=== PATIENT | female | born 1975 | race Caucasian/White ===

== ENCOUNTER 2025-01-28 17:17 | Inpatient (IN) | payer OTHER, SELFPAY ==
[2025-01-28] VITALS (7 sets, daily range): BP systolic 116–136; BP diastolic 75–96; BMI 33.0
[2025-01-28 12:19] LABS: % Basophils 0.4 % (0-2); % Eosinophils 0.9 % (0-6); % Immature Granulocytes 0.1 % (0-0.5); % Lymphocytes 20.9 % (20.5-51.1); % Neutrophils 73.7 % (42.2-75.2); Absolute Eosinophils 0.1 10^3/uL (0-0.7); Absolute Lymphocytes 1.5 10^3/uL (1.2-3.4); Absolute Monocytes 0.3 10^3/uL (0.1-0.6); Absolute Neutrophils 5.1 10^3/uL (1.4-6.5); Hematocrit 39.5 % (37.0-47.0); Hemoglobin 13.9 g/dL (12.0-16.0); Mean Corp Hgb Conc. 35.2 g/dL (33.0-37.0); Mean Corpuscular Hgb 31.6 pg (27.0-31.0); Mean Corpuscular Volume 89.8 fL (81.0-99.0); Nucleated Red Blood Cells % 0 %; Platelet Count 220 10^3/uL (130-400); Red Cell Dist. Width 12.1 % (11.5-14.5)
[2025-01-28 12:32] LABS: APTT 28.1 Sec (23.4-35.0); INR 0.91; PT 12.6 Sec (11.4-14.6)
[2025-01-28 12:35] LABS: ALT (SGPT) 17 U/L (0-35); AST (SGOT) 18 U/L (14-36); Albumin 4.5 g/dl (3.5-5.0); Alkaline Phosphatase 62 U/L (38-126); Blood Urea Nitrogen 11 mg/dl (7-17); Calcium 9.7 mg/dl (8.4-10.2); Carbon Dioxide 29 mmol/L (22-30); Chloride 105 mmol/L (98-107); Glucose 99 mg/dl (70-99); Potassium 4.1 mmol/L (3.5-5.1); Sodium 144 mmol/L (135-145); Total Bilirubin 0.8 mg/dl (0.2-1.3); Total Protein 7.1 g/dl (6.3-8.2); eGFR > 60.00
[2025-01-28 12:47] LABS: Troponin I < 0.012 ng/ml
--- NOTE | 2025-01-28 15:35 | ED.GENMED ---
History of Present Illness
General
Chief Complaint: Numbness
Source: patient
Exam Limitations: none
Time Seen by Provider: 01/28/25 15:24
History of Present Illness
History of Present Illness:
Progressive sensory changes to the right side of her body throbbing weeks ago. Started in her feet progressed up towards her head and arm. Hypersensitive. No weakness although trouble typing. No headache visual issues speech issues gait issues
or other complaints. Outpatient MRI identified an infarct in the temporoparietal region on the left. Subacute nature.
Past History
Past History
ED Past Medical History: None
ED Past Surgical History: None
Social History
Tobacco: Non-smoker
Review of Systems
Review of Systems
All Other Systems: ROS reviewed and negative except as documented in HPI and ROS
Respiratory: Reports no symptoms
Cardiac: Reports no symptoms
Phy Exam
Physical Exam
Physical Exam:
GENERAL: Alert and oriented in no apparent distress
EYE: Orbits normal.
NECK: Supple, no carotid bruit
ENT: Pharynx without erythema
CARDIAC: Regular rate and rhythm without any obvious murmurs.
LUNGS: Clear breath sounds,normal
ABDOMEN: Soft, without focal tenderness or distention
NEUROLOGICAL: Alert and oriented , speech normal. Eye confrontation normal. Cranial nerves II through XII intact except for some decrease sensation to the right face. Decreased pinprick light side to the right side. Good lower extremity
strength. [id number] normal.
SKIN: Warm and dry, no rash or lesion, no discoloration, skin intact.
MUSCULOSKELETAL: No edema,no deformity.Good color
PSYCH: Normal and appropriate interaction.
Course
Orders/Labs/Results
Orders:
Orders
01/28/25 Breakfast
Regular
01/28/25 11:51
Electrocardiogram (*1) Urgent
Reason for Study: Other
Other Reason for Exam: Possible Stroke
EKG- Treatment ONCE
01/28/25 12:06
Complete Blood Count/With Diff Urgent
Comprehensive Metabolic Panel Urgent
PTT Urgent
Prothrombin Time Urgent
Troponin I Urgent
01/28/25 15:56
MR Brain W/o & With Contrast Routine
Comment:
Reason For Exam: abnormal noncontrast MRI outpatient.
Recent pill cam endoscopy?: No
01/28/25 15:59
MA [place] Wo Routine
Comment:
Reason For Exam: intracranial stenosis
Recent pill cam endoscopy?: No
MA Neck With Contrast Routine
Comment:
Reason For Exam: stenosis
Recent pill cam endoscopy?: No
01/28/25 16:29
Admit/Transfer Patient As Directed
Co-Sign Provider:
Level of Care: Inpatient admission
Assign to:: Medical/Surgical
Physician / Group: Erviny
Diagnosis: Right sided paresthesia, Abnormal MRI
Reason for Hospitalization: Brain MRI
Expected length of stay greater than two midnights?: Yes
ELOS- Estimated Length of Stay in days: 3
I certify the patient meets the requirements for IP care: Yes
01/28/25 16:30
PRN Pain Medication Management As Directed
May give lesser potent ordered pain med per pt: Yes
preference::
Protocol:: Medication orders for pain may be administered in a
manner that supports deferring to patient preference
when the pt is:
- Requesting an ordered lesser potent pain medication.
Least to most potent pain medications are defined
as: acetaminophen < NSAID < tramadol < opioids
(morphine, oxycodone, hydromorphone).
- Requesting a lesser dose of the same medication IF
ORDERED.
- Requesting a less intrusive route of administration
if both routes are prescribed by the provider (PO <
IV).
01/28/25 16:33
Code Status As Directed
Resuscitation Status: Full Code
01/28/25 18:11
Acetaminophen [Tylenol] 650 mg PO Q4HPRN PRN
01/28/25 18:23
Activity As Directed
Activity Level: Out of Bed-Early Mobility
With Assistance
I&O [Intake/ Output] As Directed
Frequency: q12h
Pneumatic Compression Sleeves As Directed
Type: Knee high
Vital Signs As Directed
Frequency: Per unit guidelines
Ot Eval And Treat Routine
Pt Eval And Treat Routine
Activity Level: Out of Bed-Early Mobility
DX Deep Vein Thrombosis Video Routine
Abnormal Lab Results
01/28/25
12:06
MCH 31.6 H pg
(27.0-31.0)
01/28/25 12:06
01/28/25 12:06
Vital Signs
Initial and Last Documented VS:
Initial Vital Signs
Pulse Resp BP Pulse Ox
73 20 136/96 99
01/28/25 11:45 01/28/25 11:45 01/28/25 11:45 01/28/25 11:45
Last Documented Vital Signs
Temp Pulse Resp BP Pulse Ox
98.1 F 85 18 127/90 95
01/28/25 18:38 01/28/25 18:38 01/28/25 18:38 01/28/25 18:38 01/28/25 18:38
*Pulse Oximetry
Patient hypoxic: no
*Critical Care Note
Total Time (30-74mins, 75-104mins- exclusive of procedures): Not Applicable
Update Note
Update Note:
Recent MRI shows a subacute possible infarct
Seen by neurology...
Recommend MRI with gadolinium also MRA.
ED Attending Note
-
Portions of this chart may have been created with voice recognition software.� Occasional wrong word or��sound alike� substitutions may have occurred due to the inherent limitations of voice recognition software.
Discharge Plan
Departure
Patient Disposition: Admit
Date of Disposition: 01/28/25
Time of Disposition: 16:18
Presentation/result/management discussed w/ accepting MD/DO: Neurology
Discharge Problem:
Right sided paresthesias, Abnormal MRI
Interventions
Interventions:
*Risk Screen - Suicide Last Done: 01/28/25 11:45
*General Assessment Last Done: 01/28/25 11:45
*Nursing Disposition Last Done: 01/28/25 18:19
ED- Neurological Assessment Last Done: 01/28/25 16:04
Discharge Date and Time
Discharge Date/Time: 01/28/25 18:20
--- NOTE | 2025-01-28 15:53 | CON.NEURO ---
Neuro Assessment/Plan
Assessment
several weeks of progressive/ascending right sided sensory symptoms
Not a good story for a stroke
Brain MRI report reviewed: left temporal/parietal large lesion T2/FLAIR, with restricted diffusion and BRIGHT on ADC mapping which is the opposite of what would be expected for a stroke
suspicion for neoplastic, inflammatory such as MS, or infectious such as abscess as the etiology of this lesion
Plan
will obtain brain MRI with contrast; if no enhancement I would treat as an abnormal presentation of stroke and start ASA/Lipitor
MRA head/neck also in case this ends up being a stroke.
Consultation
Order
Date of Consultation: 01/28/25
Requesting Provider:
Reason for Consult:
Subjective/Objective
Subjective Data
Date of Service: January 28, 2025
49 year old woman presenting with several weeks progressive right sided numbness. Started in right foot/calf, a week later spread up to the thigh, and then every week seemed to progress up her torso, then face, then arm. now entire right side is
involved.
Had brain MRI outpatient, report rev'd, large focus of T2/FLAIR increased signal posterior left temporal/parietal region.
Objective Data
Vital Signs
Pulse Resp BP Pulse Ox
85 18 128/79 99
01/28/25 15:45 01/28/25 15:51 01/28/25 15:00 01/28/25 15:15
Lab Results
01/28/25 12:06
01/28/25 12:06
PT 12.6 Sec (11.4-14.6) 01/28/25 12:06
INR 0.91 01/28/25 12:06
APTT 28.1 Sec (23.4-35.0) 01/28/25 12:06
Sodium 144 mmol/L (135-145) 01/28/25 12:06
Potassium 4.1 mmol/L (3.5-5.1) 01/28/25 12:06
BUN 11 mg/dl (7-17) 01/28/25 12:06
Glucose 99 mg/dl (70-99) 01/28/25 12:06
Calcium 9.7 mg/dl (8.4-10.2) 01/28/25 12:06
Patient Allergies
No Known Allergies Allergy (Unverified 01/28/25 11:46)
Physical Exam
-
AAOx3, speech clear, language intact
VFF, EOMI, face symmetric
full strength b/l UE/LE
decreased temp/vibration RUE/LE, with more involvement in LE.
DTR 1+ b/l UE; 1+ left knee, 2+ right knee
--- NOTE | 2025-01-28 16:39 | HPS.HSE ---
Family Physician
-
Family Physician: Ann Benavidez Files
Chief Complaint
-
Right Sided Paresthesias
History of Present Illness
Patient is a 49 y/o female without significant past medical history who presents with right sided numbness. Patient report symptoms initially started in her right foot about 4 weeks ago which now extends up the right calf. More recently symptoms
started to involved her right hand, right face and back of her head. She had an outpatient MRI which showed an abnormality in the left temporal region and she was referred to the emergency department for evaluation. Patient denies any prior
history of stroke or cancer.
Medical History
Past Medical History
Past Medical History: Reports None
Past Surgical History: Reports None
Social History
Tobacco: Non-smoker
Alcohol: Occasional
Family History
Family History: Other (Patient denies any family history of MS, or significant cancer history)
Allergies / Home Medications
Allergies reflects when Allergies were last updated in [facility].
Home Medications with original date entered in [facility]
Allergy/Medication List:
Allergies
Allergy/AdvReac Type Severity Reaction Status Date / Time
No Known Allergies Allergy Unverified 01/28/25 11:46
Home Medications
calcium carbonate (Tums) 200 mg PO QIDPRN PRN gerd 01/28/25
ibuprofen 200 mg tablet (Advil) 400 mg PO Q6HPRN PRN mild pain 01/28/25
therapeutic multivitamin 1 tab PO DAILY 01/28/25
Review of Systems
-
History Source: Patient
A 12 point ROS was completed and negative except as noted: Yes
Constitutional: Denies Fever or Chills
Respiratory: Denies Cough or Trouble Breathing
Cardiac: Denies Chest Pain or Palpitations
Abdomen/GI: Denies Abdominal Pain, Nausea, Vomiting, Diarrhea or Constipated
Physical Exam
Vital Signs
Vital Signs
Pulse Resp BP Pulse Ox
85 18 128/79 99
01/28/25 15:45 01/28/25 15:51 01/28/25 15:00 01/28/25 15:15
Physical Exam
General: Comfortable and Conversant
HEENT: Anicteric and Moist mucous membranes
Respiratory: Clear and Non Labored Respirations
Cardiac: S1/S2 and Regular Rhythm
GI: Soft and Non Tender
Rectal: Deferred by Provider
Musculoskeletal: No Clubbing, No Cyanosis and No Edema
Skin: Warm and Dry
Neuro: Awake, Alert, Oriented, No Motor Deficits and Other (Decreased sensation in the right upper and lower extremity)
Psych: Calm
Laboratory Results
-
01/28/25 12:06
01/28/25 12:06
Laboratory Results
PT 12.6 Sec (11.4-14.6) 01/28/25 12:06
INR 0.91 01/28/25 12:06
APTT 28.1 Sec (23.4-35.0) 01/28/25 12:06
Total Bilirubin 0.8 mg/dl (0.2-1.3) 01/28/25 12:06
AST 18 U/L (14-36) 01/28/25 12:06
ALT 17 U/L (0-35) 01/28/25 12:06
Alkaline Phosphatase 62 U/L (38-126) 01/28/25 12:06
Troponin I < 0.012 ng/ml 01/28/25 12:06
Data Reviewed
-
MRI: Report Reviewed by me
Lab Data: Labs Reviewed by me
Impression/Plan
-
Right Sided Paraesthesia with Abnormal MRI
-Outpatient MRI with large left temporal/parietal lesion
-Per Neurology MRI is not consistent with acute stoke
-Check Brain MRI with contrast
DVT proph: SCDs
Code Status: Full Code
--- NOTE | 2025-01-28 17:10 | W.PN.UPDATE ---
Update Note
Progress Note Update
This note serves as an addendum to the H&P by technical marketing consultant GARRETT Shaye PHIPPS
HPI
49F No significant PMHX pw right sided numbness.
- report symptoms initially started in her right foot about 4 weeks ago which now extends up the right calf.
- symptoms started to involved her right hand, right face and back of her head.
- Outpatient MRI which showed an abnormality in the left temporal region and she was referred to the emergency department for evaluation.
- Patient denies any prior history of stroke or cancer.
Vital Signs
Pulse Resp BP Pulse Ox
70 18 134/85 100
01/28/25 16:45 01/28/25 16:45 01/28/25 16:00 01/28/25 16:45
Local exam:
Neuro: Awake, Alert, Oriented, No Motor Deficits and Other (Decreased sensation in the right upper and lower extremity)
Abnormal Lab
01/28/25
12:06
MCH 31.6 H
ASSESSMENT & PLAN
Right Sided Paraesthesia with Abnormal MRI
-Outpatient MRI with large left temporal/parietal lesion
-Per Neurology MRI is not consistent with acute stoke
-Check Brain MRI with contrast
DVT proph: SCDs
Full Code
IP MS
[2025-01-28] MEDS: TYLENOL 650 MG PO (18:16)
--- NOTE | 2025-01-29 01:36 | W.PN.UPDATE ---
Update Note
Progress Note Update
~ Midnight - Pt c/o headache, rated 4/10, stated Tylenol given previously did not work. Pt stated headache was new, no hx of migraines.
Neurology following due to abnormal outpatient MRI. TT Neurology, Dr. Biggs, appreciate his recommendations as he had seen patient during the afternoon.
Neurology recommendations: Toradol 15 mg IV w/Reglan 10 mg IV w/Benadryl 25 mg IV or Decadron 4 mg.
On recheck, patient sleeping. Medication not ordered at this time, will order if pt c/o headache again.
~5:30 am Pt c/o headache. Offered recommended treatment from Neurology, patient declined. Patient requested Tylenol, medication given.
[2025-01-29] MEDS: TYLENOL 650 MG PO ×2 (04:30→17:15)
[2025-01-29 07:25] VITALS: BP 116/76
--- NOTE | 2025-01-29 12:18 | PTOTSP ---
Patient demonstrates functional independence at baseline and does not demonstrate continued need for physical therapy. Will discharge at this time.
If needs change, please re-consult.
--- NOTE | 2025-01-29 12:25 | W.PN.HOSP.TC ---
Today's Communication/Plan
-
transfer to [facility]
Assessment / Plan
Assessment / Plan
Gen: NAD, AAOx3.
Eyes: EOMI, PERRLA, no scleral icterus.
Neck: supple.
CV: RRR, +S1/S2, no m/r/g.
Resp: CTAB, no rales, wheezes, or rhonchi.
Abd: +BS, soft, NT, ND
Skin: No rashes.
Neuro: CN 2-12 intact, non-focal.
Psych: Normal mood and affect.
MRI brain w/wo: 4.8 x 2.8 x 3.2 cm enhancing infiltrative mass in the left temporoparietal region most concerning for an intraparenchymal neoplasm such as TOOL DESIGNER lymphoma or a high-grade glioma. The imaging appearance would be atypical for active
tumefactive demyelination. 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
MRA head: Normal MRA of the [place].
MRA neck: Normal MRA of the neck.
Right Sided Paraesthesia with Abnormal MRI:
-Infiltrative mass in the left temporoparietal region as above on MRI brain
-case discussed with neurosurgery, Dr. Olinda Simons. Patient will be transferred to [facility] for brain tumor biopsy.
Total time spent on d/c = 43 min. This included today's physical exam, progress note, review of laboratory and diagnostic data, preparation of discharge documents and prescriptions, and discussions about the pt's hospital course and discharge plan
with the patient and other registered medical assistant involved in the patient's care.
Anticipated Discharge: Today
Subjective/Interval History
-
Date of Service: January 29, 2025
No new complaints.
Objective Data
-
Vital Signs:
Vital Signs
Temp Pulse Resp BP Pulse Ox
98.3 F 71 18 116/76 97
01/29/25 07:25 01/29/25 07:25 01/29/25 07:25 01/29/25 07:25 01/29/25 07:25
--- NOTE | 2025-01-29 15:03 | CM ---
Transfer to [facility] upon bed availability. Met with patient to obtain information for assessment. Patient stated that she lives in a one story home with one step to enter with her spouse and children. She is independent with her ADLs, personal
care, dressing and bathing. 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 She drives and can get to her appointments and does her own shopping. She has no DME. She has never had any VN services.
Patient has a prescription plan and uses, [facility] for all of her medications.
Her PCP is, Pramod Sultana.
Plan: Case management will continue to follow and assist with discharge planning. Transfer to [facility] when bed available.
[2025-01-29 15:15] VITALS: BP 114/79
--- NOTE | 2025-01-29 17:09 | W.PN.UPDATE ---
Update Note
Progress Note Update
Case signed out over the phone to Dr. Travis Vela at [facility].
--- NOTE | 2025-01-29 18:58 | PTCARENOTE ---
Report was given to BENITO Bojorquez at [facility].
--- NOTE | 2025-01-30 14:18 | W.DCSUMMARY ---
Discharge Summary
Discharge Data
Date of Admission: 01/28/25
Date of Discharge: 01/29/25
-
Pending Results: No
Hospital Course
Primary diagnoses:
4.8 x 2.8 x 3.2 cm enhancing infiltrative mass in the left temporoparietal region
Secondary diagnoses:
None
Consultants:
None
Imaging:
MRI brain w/wo: 4.8 x 2.8 x 3.2 cm enhancing infiltrative mass in the left temporoparietal region most concerning for an intraparenchymal neoplasm such as UG DESIGNER lymphoma or a high-grade glioma. The imaging appearance would be atypical for active
tumefactive demyelination. 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
MRA head: Normal MRA of the [place].
MRA neck: Normal MRA of the neck.
Hospital course: 49-year-old female was admitted with approximately 1 months worth of right-sided paresthesias as outlined in the H&P done on admission. MRI brain above. The case discussed with neurosurgery, Dr. Olinda Simons. The patient was
transferred to [facility] for brain tumor biopsy.
Discharge Plan
-
Patient Disposition: Acute Care Hospital
Condition: Good
Discharge Orders:
Discharge Patient (As Directed); Ordered 01/29/25
Ordered By: Ash Estevez
Discharge Date and Time
Discharge Date/Time: 01/29/25 19:42
Print Language: GUAMANIAN
== END 2025-01-29 19:42 | disposition short-term general hospital (02) | DRG 55 ==
LOC: 4 EAST ACU 17:17
PROVIDERS: Emergency Medicine; ADMITTING PHYSICIAN Internal Medicine; ATTENDING PHYSICIAN Internal Medicine; EMERGENCY PHYSICIAN Emergency Medicine; FAMILY PHYSICIAN Family Medicine; OTHER PHYSICIAN Psychiatry & Neurology Clinical Neurophysiology
DX: D49.6 Neoplasm of unspecified behavior of brain (principal)
CPT/HCPCS: 70544; 70548; 70553; 80053; 84484; 85025; 85610; 85730; 93005; 97116; 97162; 97166; 99285; A9585

== ENCOUNTER 2025-02-23 03:31 | Inpatient (IN) | payer OTHER, SELFPAY ==
[2025-02-22 23:13] VITALS: BP 110/80
[2025-02-22 23:23] VITALS: BMI 33.5
[2025-02-22 23:29] VITALS: BP 119/85
--- NOTE | 2025-02-22 23:29 | EDRN ---
Family report pt left [facility] yesterday and on the way home she vomited. Pt was in [facility] s/p brain surgery. Family note pt is not acting per usual today - will not eat or drink and more confused. Pt mixing up words. Pt has weakness R side
which is not new. Call placed to doctor and advised to come to ED to r/o brain bleed. Pt thinks it is 1960's and does not know where she is. Pt able to identify family members. No cp, sob, fevers, abd pain. Pt had tylenol with codeine last
night and this morning.
--- NOTE | 2025-02-22 23:39 | ED.GENMED ---
History of Present Illness
General
Chief Complaint: Change in Mental Status
Source: patient and family
Time Seen by Provider: 02/22/25 23:21
History of Present Illness
History of Present Illness:
Note:
CHIEF COMPLAINT(S)
Post-operative altered mental status and right-sided weakness.
HISTORY OF PRESENT ILLNESS
The patient is a 49-year-old female with a recent history of brain surgery performed three weeks ago. The family reports notable changes in her cognitive and physical status since returning home from the hospital. The patients son, Berry, noted that
after leaving the hospital and during the car ride home, her condition seemed to resemble her state in the Intensive Care Unit rather than the recovered state she displayed at the rehabilitation center. She has been refusing food and water and is
experiencing episodes of pain and fear when moved, especially when her foot inadvertently curls under her, potentially due to her right-sided numbness. Her right-sided weakness has been present since the surgical procedure.
There is also concern regarding her speech, as she has been mixing up words and struggling with sentence structure, despite previously reaching a level of coherent conversation post-surgery. Her family also reported that since yesterday she has not
taken any new medications at home, and was on Tylenol 3, which was administered incorrectly at home. The patient has been having difficulties with nausea and vomiting, affecting medication intake, especially Keppra, although she managed to take her
morning dose. On physical exam, she presents with motor activity on the left side but significant weakness on the right side.
ADDITIONAL HISTORY OBTAINED FROM SOURCES OTHER THAN THE PATIENT
Per the son, Berry, and the family, upon arriving home after discharge, the patient displayed a significant decline in her alertness and participation in conversation. Additionally, the family acknowledges a stressful discharge process and transition
back home, which might have exacerbated her current state.
EXTERNAL RECORDS REVIEWED
The provider reviewed past surgical notes and the plan was made to ensure the recent changes in the patients health are not related to post-operative complications, including possible brain bleed.
CHRONIC MEDICAL CONDITIONS SIGNIFICANTLY AFFECTING CARE
The patient is on Keppra presumably for seizure control post-brain surgery.
PHYSICAL EXAM
- Nursing notes reviewed and vital signs reviewed.
- Cardiovascular: Heart sounds normal, regular rhythm, no murmurs.
- Musculoskeletal: Significant weakness in the right upper and lower extremities.
- Neurological: Right-sided weakness noted, with better strength noted on the left side.
- Skin: Surgical wound site appears well-healed without signs of infection.
PLAN
1. Obtain a brain scan (likely CT) to rule out any acute post-operative complications such as brain bleed.
2. Continue monitoring and ensure consistent administration of anti-seizure medication (Keppra).
3. Evaluate and manage nausea to ensure adequate medication and nutrition uptake.
4. Conduct further lab tests to rule out infections, electrolyte imbalances, and other potential causes of altered mental status.
5. Consider a comprehensive review of her current medication regimen to ensure no adverse drug interactions or dosing errors.
6. Consider a urine analysis to rule out urinary tract infections, if clinically indicated.
DIFFERENTIAL DIAGNOSIS
The Differential Diagnosis includes, in no particular order and is not limited to:
1. Post-operative brain bleed or hematoma
2. Acute infection (e.g., pneumonia, urinary tract infection)
3. Medication side effect or overdose
4. Electrolyte imbalance
5. Stroke or transient ischemic attack
6. Post-operative seizure activity
7. Psychological stress or adjustment disorder
8. Migraine or headache syndromes
9. Nausea or vomiting secondary to pain or anxiety
10. Iatrogenic, related to medication or change in care environment
CARE-UPDATE
02/23/25 - 00:28
Increased edema noted in the left brain mass/tumor resection region on imaging since the previous exam, as discussed with radiology. Awaiting surgical notes from the outside hospital to further evaluate the procedure details and post-operative
status.
CARE-UPDATE
02/23/25 - 00:49
Discussed case with Neurosurgery. They recommend administering 10 mg IV Decadron once, followed by restarting Dexamethasone at 4 mg every 8 hours. Edema possibly due to recent cessation of steroids; records to be reviewed for clarification on when
they were stopped. Neurosurgery agrees that the patient can be admitted presently.
CARE-UPDATE
02/23/25 - 01:17
The patient was recently taken off dexamethasone recently. Dr. Simons suspects steroid withdrawal could be the cause of this swelling and recommends restarting the steroids and obtaining an MRI to rule out other causes. The patients bowel and bladder
functions have been affected since her transfer from [place], as noted by family. A urine sample will be obtained via catheter for a sterile assessment of potential infection and to evaluate urinary retention. The patient may benefit from a bowel
regimen due to constipation possibly exacerbated by immobility and any narcotic use. The swelling and recent changes in her symptoms might be related, and the medical team will reassess based on MRI and urine analysis results. Coordination with the
admitting physician and adherence to the developed care plan for bowel and bladder management are necessary.
Disposition:
DIAGNOSIS
- Altered mental status post brain surgery, ICD-10 R41.82
SUMMARY OF ENCOUNTER
The 49-year-old female patient, recently postoperative from a tumor resection at [facility], presented with altered mental status, deviating from her baseline reported at rehabilitation. A CT scan revealed edema changes since the most recent imaging.
Discussions with neurosurgery suggest these may be due to steroid cessation. The patient is afebrile, has no meningeal signs, and presents no surgical wound infection. Her white blood cell count and chemistry panels show normal results.
DISPOSITION
Admit
CONSIDERATION FOR ADMISSION
The recommendation from neurosurgery was to admit the patient for observation and management at [facility].
ASSESSMENT
The patients altered mental status and edema may be related to the cessation of steroids used post-operatively, necessitating the resumption of dexamethasone.
EMERGENCY TREATMENTS ADMINISTERED
Restarting dexamethasone as recommended by neurosurgery.
MANAGEMENT OF THE PATIENTS CARE WAS DISCUSSED WITH
The care management was discussed with the neurosurgery team and hospitalist.
PLAN
- Commence dexamethasone management to address brain edema.
- Admit the patient for continuous observation and further management.
INDEPENDENT INTERPRETATION OF TESTS
- My independent interpretation of the CT scan indicates changes consistent with edema.
- My independent interpretation of the CBC shows a normal white blood cell count.
- My independent interpretation of the BMP indicates unremarkable results.
MEDICAL DECISION MAKING
Number and Complexity of Problems Addressed:
The patient presented with acute issues related to surgical recovery, reflecting a high level of complexity and necessitating a nuanced differential diagnosis and management strategy.
Data:
CT imaging was analyzed, indicating brain edema likely due to steroid withdrawal. Blood tests, including CBC and chemistry panels, were normal and integral to ruling out infection or metabolic causes.
Risk:
The decision to admit the patient takes into consideration the potential complications from undefined postoperative changes, with added risks from medication adjustments and monitoring.
Past History
Past History
ED Past Medical History: None
ED Past Surgical History: None
Social History
Tobacco: Non-smoker
Phy Exam
Physical Exam
Physical Exam:
.
Course
Orders/Labs/Results
Orders:
Orders
02/22/25 23:39
Cardiac Monitoring- Treatment ONCE
02/22/25 23:40
Electrocardiogram (*1) Stat
Reason for Study: Other
Other Reason for Exam: neuro symptoms
EKG- Treatment ONCE
02/22/25 23:41
Urinalysis Reflex To Culture Urgent
Date Specimen was Collected: 02/23/25
Time Specimen was Collected: 01:30
02/22/25 23:51
Complete Blood Count/With Diff Urgent
Comprehensive Metabolic Panel Urgent
02/23/25 00:00
CT Head W/o Iv Contrast Urgent
Reason For Exam: change in MS, recent tumor resection
02/23/25 01:19
Straight cath- Treatment ONCE
02/23/25 01:20
Dexamethasone Sod Phosphate [Decadron] 10 mg IV NOW STA
02/23/25 02:00
Flush (0.9% Sodium Chloride) [Flush (Nss)] See Dose Instructions IV PER PROTOCOL
02/23/25 02:59
Admit/Transfer Patient As Directed
Co-Sign Provider:
Level of Care: Inpatient admission
Assign to:: Telemetry
Physician / Group: Mirna
Diagnosis: altered mental status
Reason for Telemetry: CVA/TIA
Date to Stop Telemetry: 02/26/25
Time to Stop Telemetry: 11:00
Reason for Hospitalization: post op cerebral edema
Expected length of stay greater than two midnights?: Yes
ELOS- Estimated Length of Stay in days: 2
I certify the patient meets the requirements for IP care: Yes
PRN Pain Medication Management As Directed
May give lesser potent ordered pain med per pt: Yes
preference::
Protocol:: Medication orders for pain may be administered in a
manner that supports deferring to patient preference
when the pt is:
- Requesting an ordered lesser potent pain medication.
Least to most potent pain medications are defined
as: acetaminophen < NSAID < tramadol < opioids
(morphine, oxycodone, hydromorphone).
- Requesting a lesser dose of the same medication IF
ORDERED.
- Requesting a less intrusive route of administration
if both routes are prescribed by the provider (PO <
IV).
02/23/25 03:01
Code Status As Directed
Resuscitation Status: Full Code
02/23/25 05:14
Acetaminophen [Tylenol] 650 mg PO Q6H PRN mild pain
Acetaminophen with Codeine [Tylenol #3] 1 tablet PO Q4HPRN PRN headache-moderate
Bisacodyl [Dulcolax] 10 mg PO DAILYPRN PRN Constipation
Bisacodyl [Dulcolax] 10 mg RECTAL DAILYPRN PRN Constipation
Dextrose 5%/Lactringers 1000ML [D5lr] 1,000 ml IV 75 mls/hr
02/23/25 05:14
Neurosurgery Consult Routine
Consulting Provider: Juanita Simons
Was physician already notified: Yes
MRI Brain [MR Brain W/o & With Contrast] Routine
Comment:
Reason For Exam: AMS, rule out stroke, suspected post op edema
Recent pill cam endoscopy?: No
Activity As Directed
Activity Level: With Assistance
Neurological Checks As Directed
Frequency: q4h
Swallow Screening CVA/TIA ONLY As Directed
If patient FAILS swallow screening:: Keep NPO, alert physician
If patient PASSES swallow screening, diet:: Cholesterol Lowering
Above diet order entered?: Yes- passed screening
Vital Signs As Directed
Frequency: Per unit guidelines
O2 Therapy [RESP] Routine
Nasal Cannula Liter Flow: 2 LPM
Titrate/Wean O2 to maintain O2 sat greater than (%): 93
Pulse Ox/spot Check [RESP] Routine
Quantity: 1
PT Consult [Pt Eval And Treat] Routine
Activity Level: With Assistance
DX Deep Vein Thrombosis Video Routine
02/23/25 06:00
Basic Metabolic Panel IN AM
Complete Blood Count/No Diff IN AM
02/23/25 08:00
Dexamethasone Sod Phosphate [Decadron] 6 mg IV Q6H
Docusate Sodium [Colace] 100 mg PO BID
Levetiracetam [Keppra] 500 mg PO BID
Sennosides [Senokot] 17.2 mg PO DAILY
Sertraline HCl [Zoloft] 25 mg PO DAILY
02/23/25 18:00
Enoxaparin Sodium [Lovenox] 40 mg SC QPM
02/26/25 11:00
DC Protocol for Telemetry ONCE
Abnormal Lab Results
02/22/25
23:51
RBC 3.70 L 10^6/uL
(4.20-5.40)
Hgb 11.8 L g/dL
(12.0-16.0)
Hct 33.7 L %
(37.0-47.0)
MCH 31.9 H pg
(27.0-31.0)
Absolute Neuts (auto) 8.9 H 10^3/uL
(1.4-6.5)
Absolute Lymphs (auto) 0.7 L 10^3/uL
(1.2-3.4)
Neutrophils % 87.6 H %
(42.2-75.2)
Lymphocytes % 7.0 L %
(20.5-51.1)
Creatinine 0.5 L mg/dL
(0.6-1.0)
Glucose 140 H mg/dl
(70-99)
Total Bilirubin 1.6 H mg/dl
(0.2-1.3)
ALT 58 H U/L
(0-35)
02/22/25 23:51
02/22/25 23:51
Vital Signs
Initial and Last Documented VS:
Initial Vital Signs
Temp Pulse Resp BP Pulse Ox
98.2 F 70 20 110/80 98
02/22/25 23:13 02/22/25 23:13 02/22/25 23:13 02/22/25 23:13 02/22/25 23:13
Last Documented Vital Signs
Temp Pulse Resp BP Pulse Ox
98.8 F 67 16 124/74 98
02/23/25 05:10 02/23/25 05:10 02/23/25 05:10 02/23/25 05:10 02/23/25 05:10
*Pulse Oximetry
Patient hypoxic: no
*Aeronautical Engineering Professor Interpretation
Rate: normal
Interpretation: normal
Rhythm: sinus
*Critical Care Note
Total Time (30-74mins, 75-104mins- exclusive of procedures): 45 minutes
ED Attending Note
-
Portions of this chart may have been created with voice recognition software.� Occasional wrong word or��sound alike� substitutions may have occurred due to the inherent limitations of voice recognition software.
Discharge Plan
Departure
Patient Disposition: Admit
Date of Disposition: 02/23/25
Time of Disposition: 01:21
Admit to: IMU
Presentation/result/management discussed w/ accepting MD/DO: Hospitalist
Discharge Problem:
Cerebral edema, Acute alteration in mental status
Interventions
Interventions:
*Risk Screen - Suicide Last Done: 02/22/25 23:13
*General Assessment Last Done: 02/22/25 23:13
*Neglect/Abuse Screening Last Done: 02/22/25 23:13
*ED- Fall Risk Assessment Last Done: 02/22/25 23:13
*ED COVID-19 Vaccine History Last Done: 02/23/25 05:30
*Nursing Disposition Last Done: 02/23/25 05:30
ED- Pulmonary Assessment Last Done: 02/22/25 23:30
ED- Neurological Assessment Last Done: 02/23/25 04:45
ED- Cardiac Assessment Last Done: 02/22/25 23:30
ED Swallowing Screen Last Done: 02/23/25 03:00
Discharge Date and Time
Discharge Date/Time: 02/23/25 05:10
[2025-02-22 23:57] LABS: % Basophils 0.1 % (0-2); % Immature Granulocytes 0.3 % (0-0.5); % Neutrophils 87.6 % (42.2-75.2); Absolute Lymphocytes 0.7 10^3/uL (1.2-3.4); Absolute Monocytes 0.5 10^3/uL (0.1-0.6); Absolute Neutrophils 8.9 10^3/uL (1.4-6.5); Hematocrit 33.7 % (37.0-47.0); Hemoglobin 11.8 g/dL (12.0-16.0); Mean Corpuscular Hgb 31.9 pg (27.0-31.0); Mean Corpuscular Volume 91.1 fL (81.0-99.0); Mean Platelet Volume 8.4 fL (7.4-10.4); Nucleated Red Blood Cells % 0 %; Platelet Count 207 10^3/uL (130-400); Red Cell Dist. Width 12.8 % (11.5-14.5); White Blood Cell Count 10.1 10^3/uL (4.8-10.8)
[2025-02-23] VITALS (13 sets, daily range): BP systolic 109–126; BP diastolic 74–81; BMI 33.2
[2025-02-23 00:10] LABS: ALT (SGPT) 58 U/L (0-35); AST (SGOT) 24 U/L (14-36); Albumin 4.2 g/dl (3.5-5.0); Alkaline Phosphatase 89 U/L (38-126); Blood Urea Nitrogen 13 mg/dl (7-17); Carbon Dioxide 28 mmol/L (22-30); Chloride 101 mmol/L (98-107); Estimated Creatinine Clearance 113 ml/min; Glucose 140 mg/dl (70-99); Potassium 4.1 mmol/L (3.5-5.1); Sodium 136 mmol/L (135-145); Total Bilirubin 1.6 mg/dl (0.2-1.3); Total Protein 6.8 g/dl (6.3-8.2); eGFR > 60.00
[2025-02-23] MEDS: DECADRON 10 MG IV (01:34)
[2025-02-23 01:51] LABS: Urine Albumin Negative (Neg - Trace); Urine Bilirubin Negative (Negative); Urine Character Clear (Clear); Urine Color Yellow; Urine Glucose Negative (Negative); Urine Ketone Negative (Negative); Urine Leukocyte Negative (Negative); Urine Nitrite Negative (Negative); Urine Occult Blood Negative (Negative); Urine Specific Gravity 1.015 (<1.030); Urine Urobilinogen Negative (Neg - 1+)
--- NOTE | 2025-02-23 02:46 | HPS.HSE ---
Family Physician
-
Family Physician: Ann Sultana
Chief Complaint
-
change in mental status
History of Present Illness
This is a 49-year-old female will presents to the emergency department for right sided weakness and worsening confusion.
Patient has a recent history of glioblastoma status post resection. She initially presented to [facility] on January 28 with right-sided numbness and started initially in her right foot about 4 weeks prior to that w and then involving the right
calf and right upper extremity any progression over 4 weeks. She was found to have 4.8 x 2.8 x 3.2 enhancing infiltrative mass in the left temporoparietal region concerning for intraparenchymal neoplasm. Patient was transferred to [facility] and underwent resection of the tumor with findings of temporal vascular hypervascular tumor consistent with glioblastoma. Was discharged to rehab on . According to family at the time of being discharged from rehab 2 days ago she was
able to squeeze with her right hand. She was also able to ambulate somewhat with some increased use of the right lower extremity. However upon arrival at home the patient demonstrated decreased appetite, increased somnolence, increased confusion,
increased weakness of the upper and lower extremities. She had no fevers or chills. Her blood pressure had been stable. She had no urinary symptoms. She did not complain of any headache but was given Tylenol the previous evening. She also
vomited about 3 times at home. It was nonbloody and nonbilious.
Here in the emergency department patient was afebrile with a Tmax of 98.2. Her blood pressure was 120/74 with a pulse of 60 and she was satting 98% on room air. ECG shows normal sinus rhythm at a rate of 60. CBC was unremarkable. Electrolytes
BUN/creatinine were all normal. Total bilirubin was slightly elevated 1.6, AST ALT were normal. UA was negative.
CT of the head shows redemonstration of postoperative changes in the left temporoparietal lobe however large amount of retained edema and effacement of the sulci and Clint at significantly increased compared to prior study. There is a 9 mm of
rightward shift of the septum pellucidum which was previously 5 mm. There is left temporal on dilation that is slightly increased compared to prior.
Medical History
Past Medical History
Past Medical History: Reports Other
Additional Past Medical History:
Left temporal glioblastoma status post resection at [facility] on 02/01
Past Surgical History: Reports None and Brain
Social History
Tobacco: Non-smoker
Alcohol: Occasional
Family History
Family History: Other (Patient denies any family history of MS, or significant cancer history)
Allergies / Home Medications
Allergies reflects when Allergies were last updated in [facility].
Home Medications with original date entered in [facility]
Allergy/Medication List:
Allergies
Allergy/AdvReac Type Severity Reaction Status Date / Time
oxycodone Allergy ALTERED Verified 02/22/25 23:38
MENTAL
STATUS
Home Medications
acetaminophen 325 mg tablet 650 mg PO Q6H PRN mild pain 02/06/25
acetaminophen 300 mg-codeine 30 mg tablet 1 tab PO Q4HPRN PRN headache-moderate 5 days #30 tabs 02/20/25
bisacodyl 10 mg rectal suppository 10 mg VT DAILYPRN PRN Constipation 30 days #30 ea 02/20/25
bisacodyl 5 mg tablet,delayed release 10 mg (2 x 5 mg) PO DAILY Constipation 30 days #60 tabs 02/20/25
bisacodyl 5 mg tablet,delayed release 10 mg (2 x 5 mg) PO DAILYPRN PRN Constipation 30 days #30 tabs 02/20/25
docusate sodium 100 mg capsule 100 mg PO BID 30 days #60 caps 02/20/25
levetiracetam 500 mg tablet 500 mg PO BID seizure prophylaxis 30 days #60 tabs 02/20/25
sertraline 25 mg tablet 25 mg PO DAILY Mental Health/Anxiety 30 days #30 tabs 02/20/25
sennosides 8.6 mg tablet (Angela-stephen) 17.2 mg PO DAILY Constipation 02/22/25
Review of Systems
-
History Source: Family
Constitutional: Reports No Symptoms
EENT: Reports No Symptoms
Respiratory: Reports No Symptoms
Cardiac: Reports No Symptoms
Abdomen/GI: Reports Vomiting
: Reports No Symptoms
Musculoskeletal: Reports No Symptoms
Skin: Reports No Symptoms
Neurological: Reports Weakness
Endocrine: Reports No Symptoms
Hematologic/Lymphatic: Reports No Symptoms
Psych: Reports No Symptoms
Physical Exam
Vital Signs
Vital Signs
Temp Pulse Resp BP Pulse Ox
98.2 F 60 16 119/74 98
02/22/25 23:13 02/23/25 00:00 02/23/25 00:00 02/23/25 00:00 02/22/25 23:13
Physical Exam
General: Well Developed, Well Nourished and Comfortable
HEENT: NormoCephalic, Anicteric and Moist mucous membranes
Respiratory: Clear
Cardiac: S1/S2 and Regular Rhythm
Breast: Deferred by me
GI: Soft, Non Tender, Non Distended and Normal Bowel Sounds
Rectal: Deferred by Provider
Genito-urinary: Deferred by me
Musculoskeletal: No Clubbing, No Cyanosis and No Edema
Skin: Warm
Neuro: Awake, Cranial Nerves Intact, Slurred Speech and Other (2/5 strenght in the R upper extremity. 2/5 strenght at the right LE to the plantar flexion. Clonus on R planter reflex); No Oriented, Facial Droop or Tremors
Laboratory Results
-
02/22/25 23:51
02/22/25 23:51
Laboratory Results
Total Bilirubin 1.6 mg/dl (0.2-1.3) H 02/22/25 23:51
AST 24 U/L (14-36) 02/22/25 23:51
ALT 58 U/L (0-35) H 02/22/25 23:51
Alkaline Phosphatase 89 U/L (38-126) 02/22/25 23:51
Data Reviewed
-
CT Scan: Report Reviewed by me
Medical Tests (Nuc Med, Echo, EKG etc): Image Personally Visualized and interpreted
Lab Data: Labs Reviewed by me
Old Records: Reviewed
Impression/Plan
-
IMPRESSION:
Patient with recent history of glioblastoma status post resection of the right temporal mass with residual right-sided weakness presents to the emergency department with worsening weakness and altered mental status after discharge from rehab about 2
days ago. Patient has decreased p.o. intake. She has normal blood pressure. She has no headache. She is afebrile. She has no other signs of infection. She has no neck stiffness. CT scan shows increased edema and effacement of is concerning
Clint compared to prior study. There is a 9 mm right word shift of the septum pellucidum which was previously 5 mm. Concern for vasogenic edema. Patient currently was supposed to stop taking the Decadron on 6 4 however the discharge medications
showed no Decadron listed. Suspect early discontinuation of steroids with rebound withdrawal.
PLAN:
Postoperative vasogenic edema likely secondary to early termination of steroids. No seizure activity noted.
- admit to telemetry
- no signs of acute infection
- obtain mri with/without contrast in am
- d/w neurosurg, patient can stay here with iv decadron
- 10mg iv decadron in Ed, will continue with 4mg iv q8 per neurosurg
- npo for now, speech swallow eval
- neurochecks q 6 hours
- neurosurgery consult
- pt eval
DVT PPX - heparin sq
Code status - Full Code
--- NOTE | 2025-02-23 05:10 | PTCARENOTE ---
Pt received from ED to room 422. Pt oriented to room and call peck. Pt with expressive aphasia, difficult to assess orientation.
[2025-02-23] MEDS: D5LR 1000 IV (05:57)
[2025-02-23] MEDS: DECADRON 6 MG IV ×3 (07:32→19:40)
[2025-02-23] MEDS: COLACE 100 MG PO ×2 (07:38→19:41)
[2025-02-23] MEDS: SENOKOT 17.2 MG PO (07:39)
[2025-02-23] MEDS: ZOLOFT 25 MG PO (07:40)
[2025-02-23] MEDS: KEPPRA 500 MG PO ×2 (07:40→19:41)
--- NOTE | 2025-02-23 08:07 | W.PN.HOSP.TC ---
Today's Communication/Plan
-
Pending MRI brain.
Assessment / Plan
Assessment / Plan
Impression:
Patient is a pleasant 49 years old female with recent history of glioblastoma status post resection of the right temporal mass with residual right-sided weakness presents to the emergency department with worsening weakness and altered mental status
after discharge from rehab about 2 days ago. Patient has decreased p.o. intake. She has normal blood pressure. She has no headache. She is afebrile. She has no other signs of infection. She has no neck stiffness. CT scan shows increased edema
and effacement of is concerning Clint compared to prior study. There is a 9 mm right word shift of the septum pellucidum which was previously 5 mm. Concern for vasogenic edema. Patient currently was supposed to stop taking the Decadron on 6 4
however the discharge medications showed no Decadron listed. Suspect early discontinuation of steroids with rebound withdrawal.
Assessment/plan:
Acute metabolic encephalopathy
Postoperative vasogenic edema likely secondary to early termination of steroids. No seizure activity noted.
Patient presented to the ER with change in mental status.
CT head showed
Significantly progressed right midline shift with findings concerning for possible infection. Nonacute hemorrhagic products and postsurgical changes not excluded. MRI examination with IV contrast recommended. The patient is on the schedule today.
Progressed edematous change of the left cerebrum along with persistent postsurgical changes including a stable tiny focus of hemorrhagic products..
Discussed with neurosurgery
MRI with and without contrast pending
Neurosurgery recommended to continue with Decadron
10mg iv decadron in Ed, will continue with 4mg iv q8 per neurosurg
npo for now, speech swallow eval
neurochecks q 6 hours
Continue Keppra
Oncology consult.
CODE STATUS: Full code
DVT prophylaxis: Lovenox
Diet: Regular diet
Disposition: Pending MRI brain
Total time spent on today's encounter was 65 minutes which included time spent in counseling the patient/family regarding diagnosis and treatment plan as listed above, goals of care, and symptom management. Case was discussed with nursing staff,
specialists, and care coordinators/case management. All labs and imaging personally reviewed by me. Remainder the time spent in detailed review of previous records, lab data, imaging, and other medical provider documentation.
Anticipated Discharge: > 48 hours
Subjective/Interval History
-
Date of Service: February 23, 2025
Seen and examined at bedside.
Minimal communication.
Objective Data
-
Labs:
Laboratory Results
02/22/25 02/23/25
23:51 07:41
WBC 10.1 Pending
Hgb 11.8 L Pending
Hct 33.7 L Pending
Plt Count 207 Pending
Sodium 136 Pending
Potassium 4.1 Pending
Chloride 101 Pending
Carbon Dioxide 28 Pending
BUN 13 Pending
Creatinine 0.5 L Pending
Glucose 140 H Pending
Calcium 10.0 Pending
Total Bilirubin 1.6 H
AST 24
ALT 58 H
Alkaline Phosphatase 89
Vital Signs:
Vital Signs
Temp Pulse Resp BP Pulse Ox
98.8 F 67 16 124/74 98
02/23/25 05:10 02/23/25 05:10 02/23/25 05:10 02/23/25 05:10 02/23/25 05:10
Physical Exam
-
General: Appears Chronically Ill
HEENT: No Ptosis, PERRLA and Nose Appears Normal
Respiratory: Rales and Rhonchi
Cardiac: Regular Rhythm and S1/S2
Breast: Deferred by me
GI: Soft, Nontender, Nondistended and Normal Bowel Sounds
Genito-urinary: No Costovertebral Tender
Musculoskeletal: No Clubbing, No Cyanosis and No Edema
Skin: Warm
Neuro: Awake
Psych: Calm, Confused and Other (Poor communication)
Data Reviewed
-
Diagnostic Radiology: Image personally visualized and interpreted and Report Reviewed by me
CT Scan: Image personally visualized and interpreted and Report Reviewed by me
Ultrasound: Image personally visualized and interpreted and Report Reviewed by me
MRI: Image personally visualized and interpreted and Report Reviewed by me
Medical Tests (Nuc Med, Echo etc): Image personally visualized and interpreted and Report Reviewed by me
Labs: Labs Reviewed by me
Old Records: Reviewed
[2025-02-23 08:26] LABS: Hematocrit 33.9 % (37.0-47.0); Hemoglobin 12.1 g/dL (12.0-16.0); Mean Corp Hgb Conc. 35.7 g/dL (33.0-37.0); Mean Corpuscular Hgb 32.1 pg (27.0-31.0); Mean Corpuscular Volume 89.9 fL (81.0-99.0); Mean Platelet Volume 10.4 fL (7.4-10.4); Platelet Count 167 10^3/uL (130-400); Red Blood Cell Count 3.77 10^6/uL (4.20-5.40); Red Cell Dist. Width 12.9 % (11.5-14.5); White Blood Cell Count 7.3 10^3/uL (4.8-10.8)
[2025-02-23] MEDS: TYLENOL 650 MG PO (10:05)
[2025-02-23 10:12] LABS: Blood Urea Nitrogen 12 mg/dl (7-17); Calcium 10.4 mg/dl (8.4-10.2); Carbon Dioxide 27 mmol/L (22-30); Chloride 105 mmol/L (98-107); Estimated Creatinine Clearance 113 ml/min; Glucose 151 mg/dl (70-99); Potassium 3.9 mmol/L (3.5-5.1); Sodium 140 mmol/L (135-145); eGFR > 60.00
--- NOTE | 2025-02-23 11:31 | CM ---
CM reviewed chart, patient seen bedside, initial assessment completed by patients mother. Per mother, patient resides with spouse, two songs, two daughters, in a single story home, one step to enter. Patient has a walker, WC, toilets rails in the
home. Patient recently discharged from [facility] scheduled to come out for home services. Patient PCP Pramod Sultana, [facility], confirms prescription coverage. PT/OT ordered, will follow along for recommendations.
Neurosurgery consulted. CM will continue to follow for all discharge planning needs.
Plan; home with family with [facility], watch for therapy recommendations
--- NOTE | 2025-02-23 14:48 | CON.NS ---
Consultation
-
Date/Time Consultation Performed: 02/23/2025; 15:00
Performing Provider: Ronak
Chief Complaint
History of Present Illness
This is a neurosurgical consultation on a 49-year-old female, known to me. She presented to [facility] approximately 3 to 4 weeks prior, with right sided paresthesias. Imaging revealed a left temporoparietal enhancing lesion. She
ultimately was transferred to [facility], and underwent excisional biopsy, which ultimately revealed high-grade glioma. Final pathology/grading is pending. Molecular studies are pending. She had interim worsening of speech, as well as
right upper, lower extremity weakness, for which she was transferred after surgery to rehab for. This has been steadily improving. Plan was to follow-up with her as an outpatient this upcoming week to discuss final pathology, as well as
chemoradiotherapy plans. She ultimately was discharged from rehab facility to home on 02/21/2025. She presented again on 02/22/2025 with decreased appetite, increased somnolence, increased confusion, and weakness in both upper and lower extremities.
She also had vomiting. Patient had a noncontrast head CT, which demonstrated postsurgical changes with the left temporoparietal lobe, with progression of edema. Patient admitted and restarted on high-dose steroids.
Patient seen and examined. 3 children are at bedside. She and family report that she was discharged from rehab to home several days ago. They feel that while she was making some improvement with the right arm and right leg paresthesias, that it
significantly worsened over the last 2 days. She was not discharged on any steroids.
Since being started on steroids, the patient, family reports significant improvement of right upper and lower extremity. They are scheduled to see oncology on Tuesday, and to see me on Tuesday.
Review of Systems
-
10 point review of systems including constitutional, ENT, cardiovascular, respiratory, GI, , endocrinologic, hematologic, neurologic, musculoskeletal was performed, and was negative except for as stated in HPI.
Medication and Allergies
Home Medications
Home Medications
�Medication �Instructions �Recorded
acetaminophen 325 mg tablet 650 mg PO Q6H PRN mild pain 02/06/25
acetaminophen 300 mg-codeine 30 mg 1 tab PO Q4HPRN PRN 02/20/25
tablet headache-moderate 5 days #30 tabs
bisacodyl 10 mg rectal suppository 10 mg ND DAILYPRN PRN Constipation 02/20/25
30 days #30 ea
bisacodyl 5 mg tablet,delayed 10 mg (2 x 5 mg) PO DAILY 02/20/25
release Constipation 30 days #60 tabs
bisacodyl 5 mg tablet,delayed 10 mg (2 x 5 mg) PO DAILYPRN PRN 02/20/25
release Constipation 30 days #30 tabs
docusate sodium 100 mg capsule 100 mg PO BID 30 days #60 caps 02/20/25
levetiracetam 500 mg tablet 500 mg PO BID seizure prophylaxis 02/20/25
30 days #60 tabs
sertraline 25 mg tablet 25 mg PO DAILY Mental 02/20/25
Health/Anxiety 30 days #30 tabs
sennosides 8.6 mg tablet (Angela-stephen) 17.2 mg PO DAILY Constipation 02/22/25
Allergies
Allergies
Allergy/AdvReac Type Severity Reaction Status Date / Time
oxycodone Allergy ALTERED Verified 02/22/25 23:38
MENTAL
STATUS
Physical Exam
-
Exam:
Awake, alert, attentive
Pupils are equal and reactive to light
Extraocular movements are full
Face symmetric
Left temporal incision is healing well with no evidence of concerning erythema, edema, or fluctuance
Right upper extremity 2/5, 1-2/5 right lower extremity.
Still with mixed aphasia, with some fluent speech. Paraphasic errors.
MRI of the brain with and without contrast performed today, 02/23/2025 was reviewed. Images were personally viewed and interpreted by me. They were also compared with previous imaging studies performed at [facility] immediately
postoperatively. There has been interval significant progression of tumor and disease with worsening vasogenic edema. Now, compared with patient's postoperative MRI scan performed on 02/02/2025, there is more extensive tumor superiorly, involving
the frontal parietal lobe, with heterogeneous enhancement, indicating likely necrosis, as well as similar appearance of tumor extending to the corpus callosum. There also appears to be increased soft tissue enhancement around the margins of the
cavity, and while some of this may be postsurgical enhancement, given the extensive edema, and FLAIR signal hyperintensity, aggression of disease is highly likely.
Problems
-
Problem Status Onset Code
Acute alteration in mental status Acute R41.82
Cerebral edema Acute G93.6
Assessment / Plan
-
This a 49-year-old female who is approximately 3 weeks status post left temporal craniotomy for excisional biopsy of lesion. Final pathology is pending. Her MRI performed today demonstrates, unfortunately, significant progression of disease.
Discussed with hospital medicine, as well as oncology. I also updated patient, family, and parents on MRI findings.
Ultimately, I explained that additional surgical excision will not provide significant control of this, as it is growing quite rapidly, and additional surgical resection will likely require postponing adjuvant chemoradiotherapy. Therefore, I do
believe that she would benefit from chemo and radiotherapy, and I would suggest consulting with [facility] to see if she may benefit from any additional clinical trials.
Continue with dexamethasone 4 mg every 6 hours
Keppra 500 mg twice daily
[2025-02-24] VITALS (7 sets, daily range): BP systolic 101–129; BP diastolic 64–79
[2025-02-24] MEDS: DECADRON 6 MG IV ×4 (03:00→19:45)
[2025-02-24 07:06] LABS: Hematocrit 35.5 % (37.0-47.0); Hemoglobin 12.2 g/dL (12.0-16.0); Mean Corp Hgb Conc. 34.4 g/dL (33.0-37.0); Mean Corpuscular Hgb 31.7 pg (27.0-31.0); Mean Corpuscular Volume 92.2 fL (81.0-99.0); Mean Platelet Volume 9.1 fL (7.4-10.4); Platelet Count 254 10^3/uL (130-400); Red Blood Cell Count 3.85 10^6/uL (4.20-5.40); Red Cell Dist. Width 13.1 % (11.5-14.5); White Blood Cell Count 11.7 10^3/uL (4.8-10.8)
[2025-02-24 07:10] LABS: Blood Urea Nitrogen 17 mg/dl (7-17); Calcium 10.1 mg/dl (8.4-10.2); Carbon Dioxide 25 mmol/L (22-30); Chloride 106 mmol/L (98-107); Estimated Creatinine Clearance 113 ml/min; Glucose 120 mg/dl (70-99); Potassium 4.2 mmol/L (3.5-5.1); Sodium 141 mmol/L (135-145); eGFR > 60.00
[2025-02-24] MEDS: COLACE 100 MG PO ×2 (09:09→19:45)
[2025-02-24] MEDS: KEPPRA 500 MG PO ×2 (09:09→19:45)
[2025-02-24] MEDS: SENOKOT 17.2 MG PO (09:09)
[2025-02-24] MEDS: ZOLOFT 25 MG PO (09:09)
--- NOTE | 2025-02-24 09:44 | CON.ONC ---
Consultation
-
Date Consultation Requested: 02/24/25
Date Consultation Performed: 02/24/25
Requesting Provider: KENIA
Performing Provider: BAY
Reason for Consultation: PROGRESSIVE GBM
Impression
Impression
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
Plan
Plan
Consult radiation therapy Tuesday morning; consult social welfare clerk -- she wishes to live with her mother for the initiation of therapy--suspect she will be candidate for Temozolomide--followup inpatient
Patient History
History of Present Illness
49yo WF s/p resection of likely GBM d/c from [facility] rehab day prior to admission for which she was manifestingincreasing confusion and emotional lability. Her d/c from [facility] notes continued difficulties with ambulation even with walker; imaging notes
likely progression of disease with left midline shift and nodular enhance of the left resection bed. She presented in mid January 2025 with parasthesias to ER noting large 8cm temporal mass; she was transferred to [facility] where CT CAP noted no evidence
of a primary source though cystic pelvic structure noted. She underwent tumor debulking 02/01/2025-- tumor is IDH1 neg awaiting molecular testing. HEr mother indicates that she was not d/c'd on oral steroid therapy from rehab and declined quickly
with marked improvment quickly with readministration of dexamethasone.
Past-Medical/Surgical History
anxiety
Patient Medication
�Medication �Instructions �Recorded �Confirmed �Last Taken �Type
acetaminophen 325 mg tablet 650 mg PO Q6H PRN mild pain 02/06/25 02/22/25 Unknown History
acetaminophen 300 mg-codeine 30 mg 1 tab PO Q4HPRN PRN 02/20/25 02/22/25 Unknown Rx
tablet headache-moderate 5 days #30 tabs
bisacodyl 10 mg rectal suppository 10 mg WI DAILYPRN PRN Constipation 02/20/25 02/22/25 Unknown Rx
30 days #30 ea
bisacodyl 5 mg tablet,delayed 10 mg (2 x 5 mg) PO DAILY 02/20/25 02/22/25 Unknown Rx
release Constipation 30 days #60 tabs
bisacodyl 5 mg tablet,delayed 10 mg (2 x 5 mg) PO DAILYPRN PRN 02/20/25 02/22/25 Unknown Rx
release Constipation 30 days #30 tabs
docusate sodium 100 mg capsule 100 mg PO BID 30 days #60 caps 02/20/25 02/22/25 Unknown Rx
levetiracetam 500 mg tablet 500 mg PO BID seizure prophylaxis 02/20/25 02/22/25 Unknown Rx
30 days #60 tabs
sertraline 25 mg tablet 25 mg PO DAILY Mental 02/20/25 02/22/25 Unknown Rx
Health/Anxiety 30 days #30 tabs
sennosides 8.6 mg tablet (Angela-stephen) 17.2 mg PO DAILY Constipation 02/22/25 02/22/25 Unknown History
Active Medications
Generic Name Dose Route Start Last Admin
Trade Name Freq PRN Reason Stop Dose Admin
Acetaminophen 650 mg 02/23/25 05:14 02/23/25 10:05
Acetaminophen 325 Mg Tablet PO 03/23/25 05:13 650 mg
Q6H PRN Administration
mild pain
Acetaminophen/Codeine Phosphate 1 tablet 02/23/25 05:14
Acetaminophen (300 Mg)/Codeine (30 Mg) Tablet PO 03/23/25 05:13
Q4HPRN PRN
headache-moderate
Bisacodyl 10 mg 02/23/25 05:14
Bisacodyl 10 Mg Rectal Suppository RECTAL 03/23/25 05:13
DAILYPRN PRN
Constipation
Bisacodyl 10 mg 02/23/25 05:14
Bisacodyl 5 Mg Enteric Coated Tablet PO 03/23/25 05:13
DAILYPRN PRN
Constipation
Dexamethasone Sodium Phosphate 6 mg 02/23/25 08:00 02/24/25 09:07
Dexamethasone 4 Mg/Ml 1 Ml Vial IV 03/23/25 07:59 6 mg
Q6H KEVIN Administration
Docusate Sodium 100 mg 02/23/25 08:00 02/24/25 09:09
Docusate Sodium 100 Mg Capsule PO 03/23/25 07:59 100 mg
BID KEVIN Administration
Levetiracetam 500 mg 02/23/25 08:00 02/24/25 09:09
Levetiracetam 500 Mg Regular Release Tablet PO 03/23/25 07:59 500 mg
BID KEVIN Administration
Sennosides 17.2 mg 02/23/25 08:00 02/24/25 09:09
Sennosides (Senokot) 8.6 Mg Tablet PO 03/23/25 07:59 17.2 mg
DAILY KEVIN Administration
Sertraline HCl 25 mg 02/23/25 08:00 02/24/25 09:09
Sertraline 25 Mg Tablet PO 03/23/25 07:59 25 mg
DAILY KEVIN Administration
Sodium Chloride 0 flush 02/23/25 02:00
Sodium Chloride 0.9% (Flush) Syringe IV 03/23/25 01:59
PER PROTOCOL KEVIN
Review of Systems
-
History Source: Patient and Family
All Other Systems: Reviewed and Negative (other than as per HPI)
Physical Exam
-
General: Comfortable and Conversant
HEENT: Moist Mucous Membranes
Cardiology: Normal Sinus Rhythm
Pulmonary: Clear
GI: Soft
Musculoskeletal: No Clubbing, No Cyanosis and Edema, Right Upper Extrem
Neurology: Other (word finding difficulty; RUE>>RLE paresis)
Psych: Calm and Anxious
Labs
Lab Results
WBC 11.7 10^3/uL (4.8-10.8) H 02/24/25 06:21
RBC 3.85 10^6/uL (4.20-5.40) L 02/24/25 06:21
Hgb 12.2 g/dL (12.0-16.0) 02/24/25 06:
Hct 35.5 % (37.0-47.0) L 02/24/25 06:21
MCV 92.2 fL (81.0-99.0) 02/24/25 06:21
MCH 31.7 pg (27.0-31.0) H 02/24/25 06:21
MCHC 34.4 g/dL (33.0-37.0) 02/24/25 06:21
RDW 13.1 % (11.5-14.5) 02/24/25 06:
Plt Count 254 10^3/uL (130-400) D 02/24/25 06:21
MPV 9.1 fL (7.4-10.4) 02/24/25 06:21
Abs Immat Gran (auto) 0.0 10^3/uL (0-0.05) 02/22/25 23:51
Absolute Neuts (auto) 8.9 10^3/uL (1.4-6.5) H 02/22/25 23:51
Absolute Lymphs (auto) 0.7 10^3/uL (1.2-3.4) L 02/22/25 23:51
Absolute Monos (auto) 0.5 10^3/uL (0.1-0.6) 02/22/25 23:51
Absolute Eos (auto) 0.0 10^3/uL (0-0.7) 02/22/25 23:51
Absolute Basos (auto) 0.0 10^3/uL (0-0.2) 02/22/25 23:51
Immature Gran % 0.3 % (0-0.5) 02/22/25 23:51
Neutrophils % 87.6 % (42.2-75.2) H 02/22/25 23:51
Lymphocytes % 7.0 % (20.5-51.1) L 02/22/25 23:51
Monocytes % 5.0 % (1.7-9.3) 02/22/25 23:51
Eosinophils % 0.0 % (0-6) 02/22/25 23:51
Basophils % 0.1 % (0-2) 02/22/25 23:51
Creatinine 0.5 mg/dL (0.6-1.0) L 02/24/25 06:21
Vital Signs
Vital Signs
Temp Pulse Resp BP Pulse Ox
97.7 F 52 16 121/66 99
02/24/25 07:00 02/24/25 07:00 02/24/25 07:00 02/24/25 07:00 02/24/25 07:00
--- NOTE | 2025-02-24 12:45 | W.PN.HOSP.TC ---
Today's Communication/Plan
-
Pending oncology consult.
Assessment / Plan
Assessment / Plan
Impression:
Patient is a pleasant 49 years old female with recent history of glioblastoma status post resection of the right temporal mass with residual right-sided weakness presents to the emergency department with worsening weakness and altered mental status
after discharge from rehab about 2 days ago. Patient has decreased p.o. intake. She has normal blood pressure. She has no headache. She is afebrile. She has no other signs of infection. She has no neck stiffness. CT scan shows increased edema
and effacement of is concerning Clint compared to prior study. There is a 9 mm right word shift of the septum pellucidum which was previously 5 mm. Concern for vasogenic edema. Patient currently was supposed to stop taking the Decadron on 6
however the discharge medications showed no Decadron listed. Suspect early discontinuation of steroids with rebound withdrawal.
MRI done showed:
ostoperative resection cavity status post GBM resection containing some subacute blood products and pneumocephalus. Peripheral postcontrast enhancement at the resection margins with more thickened nodular enhancement superiorly in the left centrum
semiovale and corpus callosum, and contiguous linear enhancement along the ependymal surface of the body of the left lateral ventricle, which does raise concern for residual/recurrent disease. No prior postoperative MRI imaging of the brain is
currently available for direct comparison. There is increased edema and midline shift compared to the head CT from 02/13/2025, stable compared to the head CT from 02/23/2025.
Large amount of vasogenic edema in the left hemisphere. 8 mm rightward midline shift at the level of the septum pellucidum.
No MRI evidence for an acute infarct.
Discussed with neurosurgery.
Continue dexamethasone and Keppra.
Lovenox discontinued for now.
Follow with oncology recommendations.
Assessment/plan:
Acute metabolic encephalopathy
Postoperative vasogenic edema likely secondary to early termination of steroids. No seizure activity noted.
Patient presented to the ER with change in mental status.
CT head showed
Significantly progressed right midline shift with findings concerning for possible infection. Nonacute hemorrhagic products and postsurgical changes not excluded. MRI examination with IV contrast recommended. The patient is on the schedule today.
Progressed edematous change of the left cerebrum along with persistent postsurgical changes including a stable tiny focus of hemorrhagic products..
Discussed with neurosurgery
MRI with and without contrast pending
Neurosurgery recommended to continue with Decadron
10mg iv decadron in Ed, will continue with 4mg iv q8 per neurosurg
npo for now, speech swallow eval
neurochecks q 6 hours
Continue Keppra
Oncology consult.
02/24
MRI done showed:
ostoperative resection cavity status post GBM resection containing some subacute blood products and pneumocephalus. Peripheral postcontrast enhancement at the resection margins with more thickened nodular enhancement superiorly in the left centrum
semiovale and corpus callosum, and contiguous linear enhancement along the ependymal surface of the body of the left lateral ventricle, which does raise concern for residual/recurrent disease. No prior postoperative MRI imaging of the brain is
currently available for direct comparison. There is increased edema and midline shift compared to the head CT from 02/13/2025, stable compared to the head CT from 02/23/2025.
Large amount of vasogenic edema in the left hemisphere. 8 mm rightward midline shift at the level of the septum pellucidum.
No MRI evidence for an acute infarct.
Discussed with neurosurgery.
Continue dexamethasone and Keppra.
Lovenox discontinued for now.
Follow with oncology recommendations.
CODE STATUS: Full code
DVT prophylaxis: SCDs
Diet: Regular diet
Disposition: Pending oncology consult.
Total time spent on today's encounter was 65 minutes which included time spent in counseling the patient/family regarding diagnosis and treatment plan as listed above, goals of care, and symptom management. Case was discussed with nursing staff,
specialists, and care coordinators/case management. All labs and imaging personally reviewed by me. Remainder the time spent in detailed review of previous records, lab data, imaging, and other medical provider documentation.
Anticipated Discharge: Within 24 hours
Subjective/Interval History
-
Date of Service: February 24, 2025
Patient seen and examined at bedside, overall feeling better, more awake and oriented.
Discussed results of MRI with the patient and later with her mom at bedside.
Denies any chest pain or shortness of breath, pending oncology consult.
Objective Data
-
Labs:
Laboratory Results
02/24/25
06:21
WBC 11.7 H
Hgb 12.2
Hct 35.5 L
Plt Count 254 D
Sodium 141
Potassium 4.2
Chloride 106
Carbon Dioxide 25
BUN 17
Creatinine 0.5 L
Glucose 120 H
Calcium 10.1
Vital Signs:
Vital Signs
Temp Pulse Resp BP Pulse Ox
97.4 F 87 18 106/71 98
02/24/25 11:00 02/24/25 11:00 02/24/25 11:00 02/24/25 11:00 02/24/25 11:00
I&O
02/23/25 02/24/25 02/25/25
06:59 06:59 06:59
Intake Total 480 / 480
Output Total 2500 / 2500
Balance -2019 /
Physical Exam
-
General: No Apparent Distress
HEENT: No Ptosis, PERRLA and Nose Appears Normal
Respiratory: Rales and Rhonchi
Cardiac: Regular Rhythm and S1/S2
Breast: Deferred by me
GI: Soft, Nontender, Nondistended and Normal Bowel Sounds
Genito-urinary: No Costovertebral Tender
Musculoskeletal: No Clubbing, No Cyanosis and No Edema
Skin: Warm
Neuro: Awake, Alert and Oriented
Psych: Calm and Other (Poor communication)
Data Reviewed
-
Diagnostic Radiology: Image personally visualized and interpreted and Report Reviewed by me
CT Scan: Image personally visualized and interpreted and Report Reviewed by me
Ultrasound: Image personally visualized and interpreted and Report Reviewed by me
MRI: Image personally visualized and interpreted and Report Reviewed by me
Medical Tests (Nuc Med, Echo etc): Image personally visualized and interpreted and Report Reviewed by me
Labs: Labs Reviewed by me
Old Records: Reviewed
[2025-02-25] MEDS: DECADRON 6 MG IV ×4 (02:48→19:31)
[2025-02-25 03:55] VITALS: BP 110/66
[2025-02-25 07:40] VITALS: BP 104/62
[2025-02-25] MEDS: SENOKOT 17.2 MG PO (08:13)
[2025-02-25] MEDS: COLACE 100 MG PO ×2 (08:13→19:31)
[2025-02-25] MEDS: ZOLOFT 25 MG PO (08:14)
[2025-02-25] MEDS: KEPPRA 500 MG PO ×2 (08:14→19:31)
[2025-02-25 11:08] VITALS: BP 125/68
--- NOTE | 2025-02-25 13:35 | CM ---
CM reviewed chart, reviewed with Hospitalist/Nurse, family looking for hospital bed. Patient and patients mother, Mónica, seen bedside. Patients plan is to discharge home to mothers home ([address], [place], [place] [address], cell phone is
[phone]). Patients mother reports her home is a one story condo, about two steps to enter, family is currently there now rearranging for patient to discharge to mothers home. Discussed PT recommendations, patient assist x2, patient and mother
aware, report patients father will always be in the home along with patients mother, patients siblings, children, and spouse will be there assisting as well. Patient was to start care with [facility] but was admitted to Hospital, referral sent back to
[facility] with new home address of patients mothers home. Patient has a commode, WC, walker, will confirm have shower chair. Information provided to Hospitalist for specific documentation needed for Hospital Bed, will fax to [facility] once able. CM will
continue to follow for all discharge planning needs.
Plan; home with mother and family support, [facility], Hospital bed by [facility] pending coverage/delivery
--- NOTE | 2025-02-25 14:43 | W.PN.HOSP.TC ---
Today's Communication/Plan
-
Pending radiation oncology consult.
Assessment / Plan
Assessment / Plan
Impression:
Patient is a pleasant 49 years old female with recent history of glioblastoma status post resection of the right temporal mass with residual right-sided weakness presents to the emergency department with worsening weakness and altered mental status
after discharge from rehab about 2 days ago. Patient has decreased p.o. intake. She has normal blood pressure. She has no headache. She is afebrile. She has no other signs of infection. She has no neck stiffness. CT scan shows increased edema
and effacement of is concerning Clint compared to prior study. There is a 9 mm right word shift of the septum pellucidum which was previously 5 mm. Concern for vasogenic edema. Patient currently was supposed to stop taking the Decadron on 6
however the discharge medications showed no Decadron listed. Suspect early discontinuation of steroids with rebound withdrawal.
MRI done showed:
ostoperative resection cavity status post GBM resection containing some subacute blood products and pneumocephalus. Peripheral postcontrast enhancement at the resection margins with more thickened nodular enhancement superiorly in the left centrum
semiovale and corpus callosum, and contiguous linear enhancement along the ependymal surface of the body of the left lateral ventricle, which does raise concern for residual/recurrent disease. No prior postoperative MRI imaging of the brain is
currently available for direct comparison. There is increased edema and midline shift compared to the head CT from 02/13/2025, stable compared to the head CT from 02/23/2025.
Large amount of vasogenic edema in the left hemisphere. 8 mm rightward midline shift at the level of the septum pellucidum.
No MRI evidence for an acute infarct.
Discussed with neurosurgery.
Continue dexamethasone and Keppra.
Lovenox discontinued for now.
Follow with oncology recommendations.
Recommending radiation oncology consult
Assessment/plan:
Acute metabolic encephalopathy
Postoperative vasogenic edema likely secondary to early termination of steroids. No seizure activity noted.
Patient presented to the ER with change in mental status.
CT head showed
Significantly progressed right midline shift with findings concerning for possible infection. Nonacute hemorrhagic products and postsurgical changes not excluded. MRI examination with IV contrast recommended. The patient is on the schedule today.
Progressed edematous change of the left cerebrum along with persistent postsurgical changes including a stable tiny focus of hemorrhagic products..
Discussed with neurosurgery
MRI with and without contrast pending
Neurosurgery recommended to continue with Decadron
10mg iv decadron in Ed, will continue with 4mg iv q8 per neurosurg
npo for now, speech swallow eval
neurochecks q 6 hours
Continue Keppra
Oncology consult.
02/24
MRI done showed:
ostoperative resection cavity status post GBM resection containing some subacute blood products and pneumocephalus. Peripheral postcontrast enhancement at the resection margins with more thickened nodular enhancement superiorly in the left centrum
semiovale and corpus callosum, and contiguous linear enhancement along the ependymal surface of the body of the left lateral ventricle, which does raise concern for residual/recurrent disease. No prior postoperative MRI imaging of the brain is
currently available for direct comparison. There is increased edema and midline shift compared to the head CT from 02/13/2025, stable compared to the head CT from 02/23/2025.
Large amount of vasogenic edema in the left hemisphere. 8 mm rightward midline shift at the level of the septum pellucidum.
No MRI evidence for an acute infarct.
Discussed with neurosurgery.
Continue dexamethasone and Keppra.
Lovenox discontinued for now.
Follow with oncology recommendations.
02/25
Radiation oncology
CODE STATUS: Full code
DVT prophylaxis: SCDs
Diet: Regular diet
Disposition: Pending radiation oncology consult.
Total time spent on today's encounter was 65 minutes which included time spent in counseling the patient/family regarding diagnosis and treatment plan as listed above, goals of care, and symptom management. Case was discussed with nursing staff,
specialists, and care coordinators/case management. All labs and imaging personally reviewed by me. Remainder the time spent in detailed review of previous records, lab data, imaging, and other medical provider documentation.
Anticipated Discharge: Within 24 hours
Subjective/Interval History
-
Date of Service: February 25, 2025
Patient seen and examined at bedside, mother at bedside.
Patient denies any chest pain or shortness of breath, was complaining of urinary retention, continue to monitor.
Objective Data
-
Vital Signs:
Vital Signs
Temp Pulse Resp BP Pulse Ox
98.2 F 68 16 125/68 97
02/25/25 11:08 02/25/25 11:08 02/25/25 11:08 02/25/25 11:08 02/25/25 11:08
I&O
02/24/25 02/25/25 02/26/25
06:59 06:59 06:59
Intake Total 480 / 480 980 / 980
Output Total 2500 / 2500
Balance -2020 / -2019 980 / 980
Physical Exam
-
General: No Apparent Distress
HEENT: No Ptosis, PERRLA and Nose Appears Normal
Respiratory: Rales and Rhonchi
Cardiac: Regular Rhythm and S1/S2
Breast: Deferred by me
GI: Soft, Nontender, Nondistended and Normal Bowel Sounds
Genito-urinary: No Costovertebral Tender
Musculoskeletal: No Clubbing, No Cyanosis and No Edema
Skin: Warm
Neuro: Awake, Alert and Oriented
Psych: Calm and Other (Poor communication)
Data Reviewed
-
Diagnostic Radiology: Image personally visualized and interpreted and Report Reviewed by me
CT Scan: Image personally visualized and interpreted and Report Reviewed by me
Ultrasound: Image personally visualized and interpreted and Report Reviewed by me
MRI: Image personally visualized and interpreted and Report Reviewed by me
Medical Tests (Nuc Med, Echo etc): Image personally visualized and interpreted and Report Reviewed by me
Labs: Labs Reviewed by me
Old Records: Reviewed
--- NOTE | 2025-02-25 15:00 | W.PN.ONC2 ---
Today's Communication / Plan
-
Temodar has been ordered from outpt specialty pharmacy.
Expediting follow up with us here in the office and with Rad Onc for initial office visit.
Impression
Impression
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
Iatrogenic adrenal insufficiency, now back on steroids
Plan
Plan
Case d/w Dr. Simons, Dr. Cope.
Patient was for initial office visit today and this will be rescheduled NORBERTO.
I took the liberty of ordering Temodar 75 mg/m� for administration daily during concomitant chemo/RT phase. Rx sent to specialty pharmacy. Consent to be obtained at outpt visit.
Radiation Oncology working on scheduling.
Patient with psychosocial issues, requests that social work reach out. She is planning to live locally with her mother during treatment.
Subjective/Objective
Chief Complaint
Heme/Onc follow up of glioblastoma multiforme s/p resection, now with rapid regrowth
Subjective
Feeling better back on steroids. Very anxious to start chemo/RT.
Vital Signs:
Vital Signs
Temp Pulse Resp BP Pulse Ox
98.2 F 68 16 125/68 97
02/25/25 11:08 02/25/25 11:08 02/25/25 11:08 02/25/25 11:08 02/25/25 11:08
Lab Results:
Laboratory Data
WBC 11.7 10^3/uL (4.8-10.8) H 02/24/25 06:21
Hgb 12.2 g/dL (12.0-16.0) 02/24/25 06:21
Plt Count 254 10^3/uL (130-400) D 02/24/25 06:21
eGFR > 60.00 02/24/25 06:21
Physical Exam
Awake, alert, non-toxic appearing
HEENT: Moist Mucous Membranes; No Jaundice
Cardiology: Normal Sinus Rhythm, S1 and S2
Pulmonary: Clear; No Wheezes or Rales
GI: Soft and Normal Bowel Sounds
Extremities: Pulses Present; No Phlebitic Signs
Neuro: Non Focal
Review of Systems
Review of Systems
Constitutional: Reports Fatigue; Denies Fever
Head: Denies Sore Throat or Hearing Loss
Respiratory: Denies Dyspnea or Cough
Cardiovascular: Denies Chest Pain or Palpitations
Gastrointestinal: Denies Nausea/Vomiting or Diarrhea
Genitourinary: Denies Hematuria
Skin: Denies Rash or Pruritis
Neurological: Denies Numbness
Psychiatric: Denies Insomnia
Hem/Lymphatic: Denies Easy Bruising or Night Sweats
--- NOTE | 2025-02-25 15:27 | W.PN.UPDATE ---
Update Note
Progress Note Update
Due to generalized weakness as a result of High grade glioma, patient requires positioning of body in ways not feasible in ordinary bed such as elevation of head more than 30 degrees most of the time. Head of bed elevation over 30 degrees will
alleviate exacerbated deconditioning caused by Weakness secondary to glioma. Patient also requires frequent change in body position such as immediate elevation of head of bed from flat position to elevation over 30 degree . Pillows and Wedges have
been unsuccessful in accommodating the desired head of bed elevation therefore a hospital bed will be necessary for treating the effects of diagnosis of high-grade glioma.
[2025-02-25 15:53] VITALS: BP 118/72
[2025-02-25 19:51] VITALS: BP 126/85
[2025-02-25 23:10] VITALS: BP 136/78
[2025-02-26] MEDS: DECADRON 6 MG IV ×3 (02:02→13:01)
[2025-02-26 03:30] VITALS: BP 119/71
[2025-02-26 07:37] LABS: Hematocrit 37.7 % (37.0-47.0); Hemoglobin 12.9 g/dL (12.0-16.0); Mean Corp Hgb Conc. 34.2 g/dL (33.0-37.0); Mean Corpuscular Hgb 31.3 pg (27.0-31.0); Mean Corpuscular Volume 91.5 fL (81.0-99.0); Platelet Count 240 10^3/uL (130-400); Red Blood Cell Count 4.12 10^6/uL (4.20-5.40); Red Cell Dist. Width 13.2 % (11.5-14.5); White Blood Cell Count 8.6 10^3/uL (4.8-10.8)
[2025-02-26 07:49] VITALS: BP 133/74
[2025-02-26] MEDS: SENOKOT PO (08:00)
[2025-02-26] MEDS: COLACE 100 MG PO (08:01)
[2025-02-26] MEDS: KEPPRA 500 MG PO (08:01)
[2025-02-26] MEDS: ZOLOFT 25 MG PO (08:01)
[2025-02-26 08:21] LABS: Blood Urea Nitrogen 16 mg/dl (7-17); Calcium 9.6 mg/dl (8.4-10.2); Carbon Dioxide 23 mmol/L (22-30); Chloride 108 mmol/L (98-107); Estimated Creatinine Clearance 113 ml/min; Glucose 108 mg/dl (70-99); Potassium 4.4 mmol/L (3.5-5.1); Sodium 139 mmol/L (135-145); eGFR > 60.00
--- NOTE | 2025-02-26 10:37 | CM ---
Addendum entered by Starr Silver 02/26/25 12:08:
Bed to be delivered today between 1-2 pm per [facility], awaiting confirmation of delivery.
Original Note:
Faxed updated information to [facility] and spoke with Naomi who is covering for Liaison. Awaiting confirmation of coverage. CM will continue to follow for discharge planning needs.
Plan; home with VN and DME
[2025-02-26 11:33] VITALS: BP 116/67
--- NOTE | 2025-02-26 12:33 | W.PN.HOSP.TC ---
Today's Communication/Plan
-
Patient will be discharged home today with [facility]O follow-up with oncology and radiation oncology
Taper steroid
Assessment / Plan
Assessment / Plan
Impression:
Patient is a pleasant 49 years old female with recent history of glioblastoma status post resection of the right temporal mass with residual right-sided weakness presents to the emergency department with worsening weakness and altered mental status
after discharge from rehab about 2 days ago. Patient has decreased p.o. intake. She has normal blood pressure. She has no headache. She is afebrile. She has no other signs of infection. She has no neck stiffness. CT scan shows increased edema
and effacement of is concerning Clint compared to prior study. There is a 9 mm right word shift of the septum pellucidum which was previously 5 mm. Concern for vasogenic edema. Patient currently was supposed to stop taking the Decadron on 6
however the discharge medications showed no Decadron listed. Suspect early discontinuation of steroids with rebound withdrawal.
MRI done showed:
ostoperative resection cavity status post GBM resection containing some subacute blood products and pneumocephalus. Peripheral postcontrast enhancement at the resection margins with more thickened nodular enhancement superiorly in the left centrum
semiovale and corpus callosum, and contiguous linear enhancement along the ependymal surface of the body of the left lateral ventricle, which does raise concern for residual/recurrent disease. No prior postoperative MRI imaging of the brain is
currently available for direct comparison. There is increased edema and midline shift compared to the head CT from 02/13/2025, stable compared to the head CT from 02/23/2025.
Large amount of vasogenic edema in the left hemisphere. 8 mm rightward midline shift at the level of the septum pellucidum.
No MRI evidence for an acute infarct.
Discussed with neurosurgery.
Continue dexamethasone and Keppra.
Lovenox discontinued for now.
Follow with oncology recommendations.
Recommending radiation oncology consult
Assessment/plan:
Acute metabolic encephalopathy
Postoperative vasogenic edema likely secondary to early termination of steroids. No seizure activity noted.
Patient presented to the ER with change in mental status.
CT head showed
Significantly progressed right midline shift with findings concerning for possible infection. Nonacute hemorrhagic products and postsurgical changes not excluded. MRI examination with IV contrast recommended. The patient is on the schedule today.
Progressed edematous change of the left cerebrum along with persistent postsurgical changes including a stable tiny focus of hemorrhagic products..
Discussed with neurosurgery
MRI with and without contrast pending
Neurosurgery recommended to continue with Decadron
10mg iv decadron in Ed, will continue with 4mg iv q8 per neurosurg
npo for now, speech swallow eval
neurochecks q 6 hours
Continue Keppra
Oncology consult.
02/24
MRI done showed:
ostoperative resection cavity status post GBM resection containing some subacute blood products and pneumocephalus. Peripheral postcontrast enhancement at the resection margins with more thickened nodular enhancement superiorly in the left centrum
semiovale and corpus callosum, and contiguous linear enhancement along the ependymal surface of the body of the left lateral ventricle, which does raise concern for residual/recurrent disease. No prior postoperative MRI imaging of the brain is
currently available for direct comparison. There is increased edema and midline shift compared to the head CT from 02/13/2025, stable compared to the head CT from 02/23/2025.
Large amount of vasogenic edema in the left hemisphere. 8 mm rightward midline shift at the level of the septum pellucidum.
No MRI evidence for an acute infarct.
Discussed with neurosurgery.
Continue dexamethasone and Keppra.
Lovenox discontinued for now.
Follow with oncology recommendations.
02/25
Radiation oncology consulted.
02/26
Patient will be discharged home today with [facility]O follow-up with oncology and radiation oncology
Taper steroid
CODE STATUS: Full code
DVT prophylaxis: SCDs
Diet: Regular diet
Disposition: Pending radiation oncology consult.
Total time spent on today's encounter was 65 minutes which included time spent in counseling the patient/family regarding diagnosis and treatment plan as listed above, goals of care, and symptom management. Case was discussed with nursing staff,
specialists, and care coordinators/case management. All labs and imaging personally reviewed by me. Remainder the time spent in detailed review of previous records, lab data, imaging, and other medical provider documentation.
Anticipated Discharge: Today
Subjective/Interval History
-
Date of Service: February 26, 2025
Patient seen and examined at bedside, denies any chest pain or shortness of breath, no abdominal pain, no nausea, no vomiting, no diarrhea or constipation.
Slightly confused.
Objective Data
-
Labs:
Laboratory Results
02/26/25
06:49
WBC 8.6
Hgb 12.9
Hct 37.7
Plt Count 240
Sodium 139
Potassium 4.4
Chloride 108 H
Carbon Dioxide 23
BUN 16
Creatinine 0.5 L
Glucose 108 H
Calcium 9.6
Vital Signs:
Vital Signs
Temp Pulse Resp BP Pulse Ox
97.8 F 55 14 116/67 97
02/26/25 11:33 02/26/25 11:33 02/26/25 11:33 02/26/25 11:33 02/26/25 11:33
I&O
02/25/25 02/26/25 02/27/25
06:59 06:59 06:59
Intake Total 980 / 980 1080 / 1080
Output Total 800 / 800
Balance 980 / 980 280 / 280
Physical Exam
-
General: No Apparent Distress
HEENT: No Ptosis, PERRLA and Nose Appears Normal
Respiratory: Rales and Rhonchi
Cardiac: Regular Rhythm and S1/S2
Breast: Deferred by me
GI: Soft, Nontender, Nondistended and Normal Bowel Sounds
Genito-urinary: No Costovertebral Tender
Musculoskeletal: No Clubbing, No Cyanosis and No Edema
Skin: Warm
Neuro: Awake, Alert and Oriented
Psych: Calm and Other (Poor communication)
Data Reviewed
-
Diagnostic Radiology: Image personally visualized and interpreted and Report Reviewed by me
CT Scan: Image personally visualized and interpreted and Report Reviewed by me
Ultrasound: Image personally visualized and interpreted and Report Reviewed by me
MRI: Image personally visualized and interpreted and Report Reviewed by me
Medical Tests (Nuc Med, Echo etc): Image personally visualized and interpreted and Report Reviewed by me
Labs: Labs Reviewed by me
Old Records: Reviewed
[2025-02-26 13:10] VITALS: BP 116/67; PULSE 55; O2SAT 97
--- NOTE | 2025-02-26 13:42 | W.PN.ONC ---
Today's Communication / Plan
-
d/c planning
outpatient f/u with med onc and rad onc
Will sign off, please call with questions
Impression
Impression
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
Iatrogenic adrenal insufficiency, now back on steroids
Plan
Plan
d/c planning
outpatient rad onc and med onc visits to be arranged
Temodar has been ordered by Dr. Bell, pending delivery and education session in our office
Consent to be obtained at outpt visit.
Social work is involved
Subjective/Objective
Subjective/Objective
eager to go home
Vital Signs:
Vital Signs
Temp Pulse Resp BP Pulse Ox
97.8 F 55 14 116/67 97
02/26/25 11:33 02/26/25 11:33 02/26/25 11:33 02/26/25 11:33 02/26/25 11:33
Lab Results:
Laboratory Data
WBC 8.6 10^3/uL (4.8-10.8) 02/26/25 06:49
Hgb 12.9 g/dL (12.0-16.0) 02/26/25 06:49
Plt Count 240 10^3/uL (130-400) 02/26/25 06:49
eGFR > 60.00 02/26/25 06:49
--- NOTE | 2025-02-26 14:27 | W.DCSUMMARY ---
Discharge Summary
Discharge Data
Date of Admission: 02/23/25
Date of Discharge: 02/26/25
-
Pending Results: No
Hospital Course
Hospital course
Patient is a pleasant 49 years old female with recent history of glioblastoma status post resection of the right temporal mass with residual right-sided weakness presents to the emergency department with worsening weakness and altered mental status
after discharge from rehab about 2 days ago. Patient has decreased p.o. intake. She has normal blood pressure. She has no headache. She is afebrile. She has no other signs of infection. She has no neck stiffness. CT scan shows increased edema
and effacement of is concerning Clint compared to prior study. There is a 9 mm right word shift of the septum pellucidum which was previously 5 mm. Concern for vasogenic edema. Patient currently was supposed to stop taking the Decadron on 02 20
however the discharge medications showed no Decadron listed. Suspect early discontinuation of steroids with rebound withdrawal.
MRI done showed:
ostoperative resection cavity status post GBM resection containing some subacute blood products and pneumocephalus. Peripheral postcontrast enhancement at the resection margins with more thickened nodular enhancement superiorly in the left centrum
semiovale and corpus callosum, and contiguous linear enhancement along the ependymal surface of the body of the left lateral ventricle, which does raise concern for residual/recurrent disease. No prior postoperative MRI imaging of the brain is
currently available for direct comparison. There is increased edema and midline shift compared to the head CT from 02/13/2025, stable compared to the head CT from 02/23/2025.
Large amount of vasogenic edema in the left hemisphere. 8 mm rightward midline shift at the level of the septum pellucidum.
No MRI evidence for an acute infarct.
Discussed with neurosurgery.
Continue dexamethasone and Keppra.
Lovenox discontinued for now.
Follow with oncology recommendations.
Recommending radiation oncology consult.
Patient will be discharged home today with [facility] follow-up with oncology and radiation oncology
Taper steroid.
During hospitalization patient was treated from the following
Acute metabolic encephalopathy
Postoperative vasogenic edema likely secondary to early termination of steroids. No seizure activity noted.
Patient presented to the ER with change in mental status.
CT head showed
Significantly progressed right midline shift with findings concerning for possible infection. Nonacute hemorrhagic products and postsurgical changes not excluded. MRI examination with IV contrast recommended. The patient is on the schedule today.
Progressed edematous change of the left cerebrum along with persistent postsurgical changes including a stable tiny focus of hemorrhagic products..
Discussed with neurosurgery
MRI with and without contrast pending
Neurosurgery recommended to continue with Decadron
10mg iv decadron in Ed, will continue with 4mg iv q8 per neurosurg
npo for now, speech swallow eval
neurochecks q 6 hours
Continue Keppra
Oncology consult.
02/24
MRI done showed:
ostoperative resection cavity status post GBM resection containing some subacute blood products and pneumocephalus. Peripheral postcontrast enhancement at the resection margins with more thickened nodular enhancement superiorly in the left centrum
semiovale and corpus callosum, and contiguous linear enhancement along the ependymal surface of the body of the left lateral ventricle, which does raise concern for residual/recurrent disease. No prior postoperative MRI imaging of the brain is
currently available for direct comparison. There is increased edema and midline shift compared to the head CT from 02/13/2025, stable compared to the head CT from 02/23/2025.
Large amount of vasogenic edema in the left hemisphere. 8 mm rightward midline shift at the level of the septum pellucidum.
No MRI evidence for an acute infarct.
Discussed with neurosurgery.
Continue dexamethasone and Keppra.
Lovenox discontinued for now.
Follow with oncology recommendations.
02/25
Radiation oncology consulted.
02/26
Patient will be discharged home today with [facility]ERTO follow-up with oncology and radiation oncology
Taper steroid
CODE STATUS: Full code
DVT prophylaxis: SCDs
Diet: Regular diet
Disposition: Pending radiation oncology consult.
Total time spent on today's encounter was 40 minutes which included time spent in counseling the patient/family regarding diagnosis and treatment plan as listed above, goals of care, and symptom management. Case was discussed with nursing staff,
specialists, and care coordinators/case management. All labs and imaging personally reviewed by me. Remainder the time spent in detailed review of previous records, lab data, imaging, and other medical provider documentation.
Anticipated Discharge: Today
Discharge Plan
-
Patient Disposition: Home with Home Care
Discharge Diagnosis/Procedures: High grade glioma
Postoperative vasogenic edema
Condition: Fair
Diet: As tolerated
Activity: As tolerated
Other Services: PT and OT
Referrals:
Cely Kerr MD [Active, Hematology / Oncology] - Immediately
Ann Sultana DO [Family Provider, Family Practice]
Zita Cope MD [Active, Radiology] - Immediately
Prescriptions:
New
dexamethasone 2 mg tablet
2 mg PO DIRECTED Qty: 70 0RF
Rx Instructions:
Please take 4 mg twice daily for 5 days then 2 mg twice daily after until follow-up with neurosurgery.
Continued
sennosides [Angela-stephen] 8.6 mg tablet
17.2 mg PO DAILY
acetaminophen 325 mg Tablet
650 mg PO Q6H PRN (Reason: mild pain)
docusate sodium 100 mg Capsule
100 mg PO BID 30 Days Qty: 60 0RF
bisacodyl 10 mg Suppository
10 mg DE DAILYPRN PRN (Reason: Constipation) 30 Days Qty: 30 0RF
bisacodyl 5 mg Tablet,Delayed Release (Dr/Ec)
10 mg PO DAILYPRN PRN (Reason: Constipation) 30 Days Qty: 30 0RF
levetiracetam 500 mg Tablet
500 mg PO BID 30 Days Qty: 60 0RF
acetaminophen-codeine 300-30 mg Tablet
1 tab PO Q4HPRN PRN (Reason: headache-moderate) 5 Days Qty: 30 0RF
sertraline 25 mg Tablet
25 mg PO DAILY 30 Days Qty: 30 0RF
Discontinued
bisacodyl 5 mg Tablet,Delayed Release (Dr/Ec)
10 mg PO DAILY 30 Days Qty: 60 0RF
Discharge Orders:
Discharge Patient (As Directed); Ordered 02/26/25
Ordered By: Annemarie Morton
Discharge Date and Time
Print Language: NEPALI
[2025-02-26 15:35] VITALS: BP 119/76
--- NOTE | 2025-02-26 15:36 | CM ---
Patient for discharge home today. CM called to confirm with mother and she gave her address as:[address] [address], cell phone is [phone]. Patient to be followed by Fely and please fax discharge summary to [phone].
CM will continue to follow for discharge planning needs.
Plan; home with Fely to follow and hospital bed delivered today
== END 2025-02-26 17:30 | disposition home health service (06) | DRG 80 ==
LOC: 4 WEST ACU 03:31
PROVIDERS: ADMITTING PHYSICIAN Internal Medicine; ATTENDING PHYSICIAN General Practice; CONSULT PHYSICIAN Neurological Surgery; EMERGENCY PHYSICIAN Emergency Medicine; FAMILY PHYSICIAN Family Medicine; OTHER PHYSICIAN Internal Medicine Hematology & Oncology
DX: G93.6 Cerebral edema (principal); G93.41 Metabolic encephalopathy; Q04.3 Other reduction deformities of brain; C71.9 Malignant neoplasm of brain, unspecified; E27.49 Other adrenocortical insufficiency; R47.01 Aphasia; F41.9 Anxiety disorder, unspecified; G93.89 Other specified disorders of brain; R41.82 Altered mental status, unspecified; R53.1 Weakness; Z88.5 Allergy status to narcotic agent
CPT/HCPCS: 51701; 70450; 70553; 80048; 80053; 81003; 85025; 85027; 93005; 96374; 97163; 97167; 97530; 97535; 99291; A9575

== ENCOUNTER 2025-03-22 15:39 | Inpatient (IN) | payer OTHER, SELFPAY ==
[2025-03-22] VITALS (46 sets, daily range): BP systolic 54–133; BP diastolic 30–102; BMI 29.9
[2025-03-22 14:01] LABS: Hematocrit 45.3 % (37.0-47.0); Hemoglobin 13.5 g/dL (12.0-16.0); Mean Corp Hgb Conc. 29.8 g/dL (33.0-37.0); Mean Corpuscular Volume 107.1 fL (81.0-99.0); Nucleated Red Blood Cells % 0.7 %; Platelet Count 98 10^3/uL (130-400); Red Cell Dist. Width 13.6 % (11.5-14.5)
[2025-03-22 14:11] LABS: INR 2.29; PT 25.3 Sec (11.4-14.6)
[2025-03-22 14:17] LABS: Absolute Neutrophils -Man Diff 7.5 10^3/uL (1.4-6.5); Normal RBC Morphology No; Platelets Checked Yes
[2025-03-22 14:18] LABS: Anisocytosis 1+; Polychromasia 1+; Total Cells Counted 100
--- NOTE | 2025-03-22 14:20 | ED.GENMED ---
History of Present Illness
General
Chief Complaint: CODE
Time Seen by Provider: 03/22/25 14:11
History of Present Illness
History of Present Illness:
TIME OF INITIAL EVALUATION
- 1:35 PM
REVIEW OF OLD RECORDS
- I reviewed the last discharge summary indicating the patient has extensive incompletely resected glioblastoma multiforme
Note:
CHIEF COMPLAINT(S)
Cardiac arrest, seizure-like activity.
HISTORY OF PRESENT ILLNESS
The patient is a 49-year-old female with a history of glioma and recent surgery who experienced cardiac arrest. Approximately one hour prior to arrival, EMS was called for a reported seizure when the patient was found on the floor after getting out
of the shower. Family described an incident suggestive of seizure-like activity, including a fall and subsequent unresponsiveness. EMS noted initial pulses, but the patients condition declined, resulting in cardiac arrest. EMS initiated CPR and
reported administering five doses of epinephrine en route to the hospital.
The patient was given 2 additional IV epi pushes shortly after arrival.
Upon arrival, the patient was non-responsive neurologically, with pupils that were unreactive and did not respond to corneal reflex testing. She was intubated prior to arrival and placed on a ventilator. There was occasional minimal respiratory
effort observed over the ventilator settings. Right femoral vein line placed shortly after arrival.
At about 2:15 PM, I spoke to family who states that they want to be aggressive and she should still be full code as the diagnosis was just made a few months ago. I did explain to them the poor prognosis.
ADDITIONAL HISTORY OBTAINED FROM SOURCES OTHER THAN THE PATIENT
Per EMS, they responded to a call for seizure activity and found the patient down on the floor. Initial assessment noted the possibility of a seizure, but progression to cardiac arrest required multiple interventions including CPR and epinephrine
administration. According to family, the patient described having a fall between the toilet and the tub, leading to the current situation. She has been receiving post-operative rehabilitation and was in the middle of a shower when this occurred.
CHRONIC MEDICAL CONDITIONS SIGNIFICANTLY AFFECTING CARE
The patient has a known history of glioma with recent neurosurgical intervention and ongoing radiation therapy.
SOCIAL DETERMINANTS AFFECTING HEALTH
The patient is currently staying with family due to health conditions and ongoing treatment, indicating changes in living arrangements to accommodate her healthcare needs.
PAST MEDICAL HISTORY
History of glioma.
REVIEW OF SYSTEMS
- Neurological: Seizure-like activity, unresponsive.
- Cardiovascular: Cardiac arrest, responsive to multiple rounds of CPR and epinephrine.
- Respiratory: Intubated, occasional minimal efforts over ventilator settings.
- Gastrointestinal: Vomiting reported by family prior to EMS arrival.
PHYSICAL EXAM
- General: The patient is unresponsive,
- HEENT: 5.5 cm ET tube in place, some blood noted posterior scalp
- Cardiovascular: No murmurs, normal heart rate, regular rhythm, No chest wall tenderness
- Pulmonary: Occasional agonal breaths over the vent noted, breath sounds are slightly coarse
- Abdomen: Soft with no peritoneal signs, no tenderness
- Neurologic: Unresponsive, pupils are approximately 4 mm bilaterally and nonreactive, absent corneals, no purposeful movement noted
- Psychiatric: Untestable
- Extremities: No significant edema
- Skin: No rash, no lesions
PROBLEM LIST
Acute:
- Cardiac arrest
- Seizure-like activity
- Unresponsiveness
Chronic:
- Glioma
PLAN
Continue close monitoring and advanced life support measures. Discuss with family regarding end-of-life decisions, including the continuation of resuscitative efforts should the patients heart stop again. Communicate prognosis and further management
options with the patients and mother.
DIFFERENTIAL DIAGNOSIS
The Differential Diagnosis includes, in no particular order and is not limited to:
1. Status epilepticus secondary to glioma
2. Acute myocardial infarction
3. Pulmonary embolism
4. Intracranial hemorrhage
5. Stroke
6. Cardiac arrhythmia
7. Electrolyte imbalances
8. Drug overdose or adverse reaction
9. Sepsis
10. Hypoxia secondary to aspiration or pneumonia
Shortly after arrival, I communicated with Dr. Simons.
RADIOLOGY
- Chest x-ray obtained, endotracheal tube tip noted at the clavicles
EKG
- Sinus 101, rightward axis deviation, right bundle branch block, nonspecific ST abnormality
LABS
- White count 17.2, of note patient is on steroids, INR 2.3,
UPDATE
-SUMMARY OF ENCOUNTER
The patient, a 49-year-old female with a history of glioma and recent neurosurgical intervention, was seen in the emergency department following a cardiac arrest and seizure-like activity. She was non-responsive and intubated upon arrival. Imaging
revealed bilateral pulmonary emboli, and a CT scan showed no bleeding in the brain. There is significant concern about her neurological status due to unresponsiveness and non-reactive pupils. Given her glioma, theres a limited ability to use
aggressive anticoagulation. The english professor and neurosurgeon were consulted to develop a management plan. The patient is placed on a blood thinner with careful monitoring due to the risk of cerebral bleeding. Continuous efforts were made to
stabilize her condition, including inserting a catheter for better blood pressure monitoring and ongoing coordination among various specialists.
DISPOSITION
Admit to the intensive care unit.
ASSESSMENT
The patient is experiencing acute complications from pulmonary embolisms superimposed on pre-existing glioma and recent brain surgery. Her neurological status is concerning, with potential irreversible damage due to hypoxia.
MANAGEMENT OF THE PATIENTS CARE WAS DISCUSSED WITH
Discussions regarding the patients care involved coordination with the english professor and neurosurgeon to strategize the most appropriate management plan for her condition.
PLAN
The management plan includes close monitoring in the intensive care unit, initiation of blood thinning medication due to detected pulmonary emboli, and coordination with neurology and neurosurgery teams for continual evaluation and advice on
potential interventions.
MEDICAL DECISION MAKING
-Complexity of Data Reviewed: Chronic conditions affecting care include a history of glioma. Differential Diagnosis includes: status epilepticus secondary to glioma, pulmonary embolism, intracranial hemorrhage, and electrolyte imbalances, among
others.
-Data:
Category 1
Clinical information was obtained from an independent historian: The patients condition was reviewed based on detailed accounts from family and EMS, including recorded seizure-like activity and cardiac events.
The following testing was considered, but ultimately not selected: Though an aggressive anticoagulation was considered due to the bilateral pulmonary emboli, it was not chosen because of the high risk of cerebral bleeding linked to the patients
recent brain surgery and existing glioma.
Category 2
My independent interpretation of the CT scan indicated no brain bleeding but confirmed pulmonary emboli in both lungs.
Category 3
Discussion with multiple healthcare providers, including the english professor and neurosurgeon, to determine the safest, most effective course of action regarding the patients critical state and anticoagulation management.
-Risk:
Due to her critical state of bilateral pulmonary emboli, glioma with recent neurosurgical intervention, and potential for neurologic compromise, there is a high risk of complications, morbidity, and mortality. Decisions were made to initiate
anticoagulation with cautious risk management.
CRITICAL CARE TIME
I provided 120 minutes of critical care time. Due to a high probability of clinically significant, life-threatening deterioration, the patient required my highest level of preparedness to intervene emergently. I personally spent this critical care
time directly managing the patient. This critical care time included obtaining a history; examining the patient; reviewing pulse oximetry; ordering and reviewing studies; arranging urgent treatment and developing a management plan; evaluation of
patients response to treatment; frequent reassessment; and discussions with other providers. This critical care time was performed to assess and manage the high probability of imminent, life-threatening deterioration that could result in multi-organ
failure. It was exclusive of separately billable procedures.
DIAGNOSIS
1. Pulmonary embolism, ICD-10 Code: I26.99
2. Glioma with postoperative complications, ICD-10 Code: D43.2
3. Anoxic brain injury, ICD-10 Code: G93.1
Past History
Past History
ED Past Medical History: None
ED Past Surgical History: None
Social History
Tobacco: Non-smoker
Phy Exam
Physical Exam
Physical Exam:
See HPI
Course
Orders/Labs/Results
Orders:
Orders
03/22/25 13:51
Electrocardiogram (*1) Urgent
Reason for Study: Chest Pain
Cardiac Monitoring- Treatment ONCE
EKG- Treatment ONCE
03/22/25 13:52
Complete Blood Count/With Diff Urgent
Manual Differential Urgent
03/22/25 13:53
Basic Metabolic Panel Urgent
Prothrombin Time Urgent
Troponin I Urgent
03/22/25 14:00
Cr Chest Portable [CR Chest Portable - 1 View] Urgent
Comment:
Reason For Exam: cardiac arrest/code
Reason Study Needs to be Portable: Unable to Transport
03/22/25 14:11
CT Head W/o Iv Contrast Urgent
Comment:
Reason For Exam: cardiac arrest h/o GBM s/p resection; new sz?
03/22/25 14:15
EPINEPHrine 4 mg/250 mL NSS [Adrenalin] 4 mg in 250 ml IV PER PROTOCOL
Initial dose in mcg/min, then titrate:: 2
Titrate to keep:: SBP > 90 mmHg
Titrate by mcg/min:: 0.5-1 mcg/min
Frequency of titrations (minutes):: 5
Maximum dose in mcg/min:: 10
Begin to taper infusion when:: Remained at goal for 4hrs
Taper by mcg/min:: 0.5-1 mcg/min
Frequency of taper (minutes) if patient maintains goal:: 30
Taper to off?: Yes
If infusion off & no longer maintaining goal:: Contact Provider
03/22/25 14:19
Hydrocortisone Sod Succinate [Solu-Cortef] 100 mg IV NOW STA
03/22/25 14:20
CT Chest PE Study Urgent
Comment:
Reason For Exam: cardiac arrest
03/22/25 15:02
Levetiracetam Injectable [Keppra] 4,500 mg IV NOW STA
Ceribell [Rapid Point of Care EEG (ED/ICU ONLY)] Q1H
Indications for use:: Brain Tumor
03/22/25 15:26
Admit/Transfer Patient As Directed
Co-Sign Provider:
Level of Care: Inpatient admission
Assign to:: ICU
Physician / Group: Dr Whiting
Diagnosis: Cardaic arrest
Reason for Hospitalization: Cardiac arrest
Expected length of stay greater than two midnights?: Yes
ELOS- Estimated Length of Stay in days: 2
I certify the patient meets the requirements for IP care: Yes
PRN Pain Medication Management As Directed
May give lesser potent ordered pain med per pt: Yes
preference::
Protocol:: Medication orders for pain may be administered in a
manner that supports deferring to patient preference
when the pt is:
- Requesting an ordered lesser potent pain medication.
Least to most potent pain medications are defined
as: acetaminophen < NSAID < tramadol < opioids
(morphine, oxycodone, hydromorphone).
- Requesting a lesser dose of the same medication IF
ORDERED.
- Requesting a less intrusive route of administration
if both routes are prescribed by the provider (PO <
IV).
03/22/25 15:27
Code Status As Directed
Resuscitation Status: Full Code
03/22/25 15:45
0.45% Sodium Chloride 1000 ml [0.45%NaCl] 1,000 ml Sodium Bicarbonate 75 meq IV 100 mls/hr
Abnormal Lab Results
03/22/25 03/22/25
13:52 13:53
WBC 17.2 H 10^3/uL
(4.8-10.8)
MCV 107.1 H fL
(81.0-99.0)
MCH 31.9 H pg
(27.0-31.0)
MCHC 29.8 L g/dL
(33.0-37.0)
Plt Count 98 L 10^3/uL
(130-400)
Abs Immat Gran (auto) 2.2 H 10^3/uL
(0-0.05)
Absolute Neuts (auto) 7.4 H 10^3/uL
(1.4-6.5)
Absolute Lymphs (auto) 6.7 H 10^3/uL
(1.2-3.4)
Absolute Monos (auto) 0.7 H 10^3/uL
(0.1-0.6)
Immature Gran % 12.6 H %
(0-0.5)
Abs Neuts (Manual) 7.5 H 10^3/uL
(1.4-6.5)
Segmented Neutrophils 30 L %
(42-75)
Band Neutrophils 14 H %
(0-3)
PT 25.3 H Sec
(11.4-14.6)
Carbon Dioxide 11 L* mmol/L
(22-30)
Creatinine 1.1 H mg/dL
(0.6-1.0)
Glucose 417 H mg/dl
(70-99)
Troponin I 0.136 H* ng/ml
03/22/25 13:52
03/22/25 13:53
Vital Signs
Initial and Last Documented VS:
Initial Vital Signs
Pulse Resp
88 24
03/22/25 14:04 03/22/25 14:04
Last Documented Vital Signs
Temp Pulse Resp BP Pulse Ox
1.8 C L 105 19 108/77 85
03/22/25 14:24 03/22/25 14:45 03/22/25 14:45 03/22/25 14:45 03/22/25 14:24
Procedures
Central Line
Right Femoral:
Indication for procedure:: Poor IV access
Procedure completed by: Ri, Dr. Monson
Consent form signed: No
If no, reason: Emergency procedure
Central line lumen: triple
Number of attempts: 2
Central line complications: none
Sterile dressing applied?: Yes
Other
Indication for procedure:: poor BP monitoring
Procedure completed by: Me Dr. Monson
If no, reason: Emergency procedure
Additional Procedure:
R femoral A line placed under Seldinger technique / US guidance
*Pulse Oximetry
SaO2: 88
Oxygen Mode of Delivery: Ventilator
Patient hypoxic: yes
*Critical Care Note
Total Time (30-74mins, 75-104mins- exclusive of procedures): 120 min
comment:
see above
ED Attending Note
-
Portions of this chart may have been created with voice recognition software.� Occasional wrong word or��sound alike� substitutions may have occurred due to the inherent limitations of voice recognition software.
Discharge Plan
Departure
Patient Disposition: Admit
Date of Disposition: 03/22/25
Time of Disposition: 15:06
Presentation/result/management discussed w/ accepting MD/DO: Hospitalist
Discharge Problem:
Cardiac arrest
Prescriptions:
No Action
sennosides [Angela-stephen] 8.6 mg tablet
17.2 mg PO DAILY
dexamethasone 2 mg tablet
2 mg PO DIRECTED Qty: 70 0RF
Rx Instructions:
Please take 4 mg twice daily for 5 days then 2 mg twice daily after until follow-up with neurosurgery.
acetaminophen 325 mg Tablet
650 mg PO Q6H PRN (Reason: mild pain)
docusate sodium 100 mg Capsule
100 mg PO BID 30 Days Qty: 60 0RF
bisacodyl 10 mg Suppository
10 mg FL DAILYPRN PRN (Reason: Constipation) 30 Days Qty: 30 0RF
bisacodyl 5 mg Tablet,Delayed Release (Dr/Ec)
10 mg PO DAILYPRN PRN (Reason: Constipation) 30 Days Qty: 30 0RF
levetiracetam 500 mg Tablet
500 mg PO BID 30 Days Qty: 60 0RF
acetaminophen-codeine 300-30 mg Tablet
1 tab PO Q4HPRN PRN (Reason: headache-moderate) 5 Days Qty: 30 0RF
sertraline 25 mg Tablet
25 mg PO DAILY 30 Days Qty: 30 0RF
Referrals:
UNKNOWN - PT NOT,INTERVIEWE [Family Provider]
Discharge Date and Time
Print Language: LATVIAN
[2025-03-22 14:31] LABS: Blood Urea Nitrogen 12 mg/dl (7-17); Calcium 8.9 mg/dl (8.4-10.2); Carbon Dioxide 11 mmol/L (22-30); Chloride 103 mmol/L (98-107); Glucose 417 mg/dl (70-99); Sodium 139 mmol/L (135-145); eGFR > 60.00
--- NOTE | 2025-03-22 14:40 | CON.INTV ---
Consultation
Consultation Request
Date/Time Consultation Requested: 03/22/25-2:40 PM
Date/Time Consultation Performed: 03/22/2025-3 PM
Requesting Provider: hospitalist
Performing Provider: Dr. Cho
Reason for Consultation: recurrent PEA arrest/ventilator/ seizures/critical care management
Medical History
-
Chief Complaint: seizures/PEA arrest
History of Present Illness:
49-year-old female with a recent diagnosis of glioblastoma s/p resection who had a seizure this morning, unresponsiveness, and PEA arrest status post CPR and 5 doses of epinephrine and route to the hospital-structural rigger consulted for
ventilator/cardiac arrest/critical care management03/22/25. The patient is intubated and sedated and review of systems was unobtainable.
Past Medical History
Past Medical History: None ( Glioblastoma - status post recent resection.)
Social History
Tobacco: Non-smoker
Alcohol: Occasional
Drug: None
Living: With Family
Occupational Exposures: no known asbestos exposure
Environmental Exposures: no known tuberculosis exposure
Family History
Family History: Reviewed & Not Pertinent
Allergies / Home Medications
Allergies
Allergy/AdvReac Type Severity Reaction Status Date / Time
oxycodone Allergy ALTERED Verified 02/22/25 23:38
MENTAL
STATUS
Home Medications
�Medication �Instructions �Recorded �Confirmed �Last Taken �Type
acetaminophen 325 mg tablet 650 mg PO Q6H PRN mild pain 02/06/25 02/22/25 Unknown History
acetaminophen 300 mg-codeine 30 mg 1 tab PO Q4HPRN PRN 02/20/25 02/22/25 Unknown Rx
tablet headache-moderate 5 days #30 tabs
bisacodyl 10 mg rectal suppository 10 mg ID DAILYPRN PRN Constipation 02/20/25 02/22/25 Unknown Rx
30 days #30 ea
bisacodyl 5 mg tablet,delayed 10 mg (2 x 5 mg) PO DAILYPRN PRN 02/20/25 02/22/25 Unknown Rx
release Constipation 30 days #30 tabs
docusate sodium 100 mg capsule 100 mg PO BID 30 days #60 caps 02/20/25 02/22/25 Unknown Rx
levetiracetam 500 mg tablet 500 mg PO BID seizure prophylaxis 02/20/25 02/22/25 Unknown Rx
30 days #60 tabs
sertraline 25 mg tablet 25 mg PO DAILY Mental 02/20/25 02/22/25 Unknown Rx
Health/Anxiety 30 days #30 tabs
sennosides 8.6 mg tablet (Angela-stephen) 17.2 mg PO DAILY Constipation 02/22/25 02/22/25 Unknown History
dexamethasone 2 mg tablet 2 mg PO DIRECTED #70 tabs 02/26/25 Unknown Rx
Review of Systems
-
Unable to Obtain full review of systems at this time due to: Other ( per HPI)
Vitals / Labs / Diagnostic Testing
Vital Signs
Temp Pulse Resp BP Pulse Ox
35.2 F L 93 15 98/56 85
03/22/25 14:24 03/22/25 14:15 03/22/25 14:15 03/22/25 14:15 03/22/25 14:24
Lab Data
03/22/25 13:52
03/22/25 13:53
Laboratory Results
03/22/25
13:53
PT 25.3 H
INR 2.29
Diagnostic Testing:
Physical Exam
-
Exam:
well-nourished and well-developed in no apparent distress
HEENT-atraumatic, normocephalic
Neck-supple, no JVD, no bruit
Heart-regular rate and rhythm-no murmurs, rubs or gallops
Chest-clear to auscultation, no wheezes, crackles
Back-no tenderness
Abdomen-soft, nontender, nondistended, no hepatosplenomegaly
Extremities-no cyanosis, clubbing, edema and good peripheral pulses
Integument-intact, no rashes, lesions or ecchymosis
Neurology-alert and oriented, nonfocal motor and sensory exam
Assessment
-
49-year-old female with a recent diagnosis of glioblastoma s/p resection who had a seizure this morning, unresponsiveness, and PEA arrest status post CPR and 5 doses of epinephrine and route to the hospital-structural rigger consulted for
ventilator/cardiac arrest/critical care management03/22/25.
[id number] PEA arrest/seizures-suspect related to pulmonary emboli-prolonged code with significant risk for anoxic encephalopathy
Ventilator dependent respiratory failure
Intubated 03/22/2025
Bilateral pulmonary emboli
Possible provoked-recent surgery and hospitalization
PESI 129, class IV-high risk
Anoxic encephalopathy suspected
Leukocytosis
Thrombocytopenia
Metabolic acidosis
Mild troponin elevation
Hyperglycemia
WHIT
Conditions present prior to admission:
Recent hospitalization 02/2025-vasogenic edema early termination of steroids post craniotomy/glioblastoma resection
Glioblastoma - status post recent resection.
Plan
Patient will be admitted to medical intensive care, Intubated with possible anoxic encephalopathy
Intubated in the field-ET tube 5.5-somewhat traumatic by report and could not place a larger ET tube
Ventilator settings reviewed
Arterial blood gas reviewed-will increase minute ventilation
Follow ABG closely
Continue to adjust ventilator
Bicarb drip if needed
VAP prevention protocol
Nebulizers if needed-currently not bronchospastic
CT chest personally reviewed- significant bilateral pulmonary emboli
Check echocardiogram
Check lower extremity ultrasound
Full PESI summarized above
Heparin drip recommended if cleared by neurosurgery
Intravenous fluid boluses as needed
Follow renal function-nephrology evaluation if worsens
Pressors as needed-epinephrine drip initiated
Hydrocortisone 100 mg initially and now Decadron 4 mg IV every 8 hours
Benefits and risks of thrombolytics therapy were reviewed with patient-risks outweigh the benefits
[id number] PEA arrest with suspected prolonged downtime and cerebral edema on CT head and significant cognitive decline post ROSC
Targeted temperature management recommended if entire team agrees
Neurosurgery also involved-no bleeding or surgical complications, vasogenic edema improved, no absolute contraindications to anticoagulation
Neurology following
Cerebell initiated
Cardiology evaluation
Monitor for arrhythmias
Trend troponin
Monitor blood sugars
Insulin supplementation as needed
DVT prophylaxis-on full anticoagulation
GI prophylaxis-on PPI
Early nutrition
Bedside range of motion
Critical care statement: A total of 85 minutes of critical care time was provided for this patient today. This includes management of unstable vital signs, evaluation for thrombolytic therapy, management of large pulmonary embolism, evaluation of
the patient at bedside, ventilator management, pressor management, targeted temperature management, reviewing the patient's pertinent medical records including radiographs, microbiology, laboratory evaluations, and discussion with primary team,
consultants, pharmacy, and critical care nursing.
Diagnostic data:
Chest x-ray03/22/25-endotracheal tube tip at thoracic inlet, possible left lower lobe air bronchograms, lungs otherwise clear
CT head 03/22/25-status post craniotomy, no evidence for acute intracranial hemorrhage, decreasing midline shift
CT chest 03/22/25-bilateral pulmonary emboli, evidence for elevated right heart pressure some pulmonary edema pattern
MRI brain 01/28/2025-2020 5-4.8 x 2.8 x 3.2 cm enhancing infiltrating mass left temporoparietal region most concerning for intraparenchymal neoplasm
MRI brain 02/23/2025-postoperative resection status post GBM resection containing some subacute blood products and pneumocephalus, increased edema and midline shift compared to CT 02/13/2025, large amount of vasogenic edema in the left hemisphere
Data Reviewed
-
EKG: Report reviewed by me
Radiology: Image personally visualized and interpreted and Report reviewed by me
CT Scan: Image personally visualized and interpreted and Report reviewed by me
MRI: Report reviewed by me
Medical Tests (Nuc Med, Echo etc): Report reviewed by me
Labs: Labs reviewed by me
Old Records: Reviewed
Critical Care Time (in minutes): 85
[2025-03-22 14:42] LABS: Troponin I 0.136 ng/ml
--- NOTE | 2025-03-22 14:52 | HPS.HSE ---
Family Physician
-
Family Physician: INTERVIEWE UNKNOWN - PT NOT
Chief Complaint
-
Unresponsive
History of Present Illness
Patient 49 years old female history of glioblastoma multiform a presented with sudden episode of mental status changes with unresponsiveness leading to cardiorespiratory arrest. Approximately 1 hour before coming in there was a reported seizure and
EMS came and found her on the floor and it was felt that she had 'seizure-like activity' and found unresponsive and initially she had pulse but then she lost her pulses and went to PEA and she was started on CPR and given 5 doses of epinephrine and
route to the hospital. Patient was given 2 additional IV epi pushes after arrival to the ED. Her history dates back to January this year she presented with paresthesias and found to have large temporal mass transferred to [facility] and
underwent tumor debulking surgery on February 01 and biopsy was positive for high-grade glioma. She has been treated with chemoradiation alone with Temodar. She was admitted at [facility] from 02/23 until 02/26 and reviewed all hospitalization.
She is intubated on mechanical ventilation. In the ER patient had a CT scan of the chest that was positive for bilateral PE. She was referred to the hospitalist service for further evaluation.
Medical History
Past Medical History
Past Medical History: Reports Other
Additional Past Medical History:
Left temporal glioblastoma status post resection at [facility] on 02/01
Past Surgical History: Reports None and Brain
Social History
Tobacco: Non-smoker
Alcohol: Occasional
Family History
Family History: Not pertinent and Other (Patient denies any family history of MS, or significant cancer history)
Allergies / Home Medications
Allergies reflects when Allergies were last updated in [facility].
Home Medications with original date entered in [facility]
Allergy/Medication List:
Allergies
Allergy/AdvReac Type Severity Reaction Status Date / Time
oxycodone Allergy ALTERED Verified 02/22/25 23:38
MENTAL
STATUS
Home Medications
acetaminophen 325 mg tablet 650 mg PO Q6H PRN mild pain 02/06/25
acetaminophen 300 mg-codeine 30 mg tablet 1 tab PO Q4HPRN PRN headache-moderate 5 days #30 tabs 02/20/25
bisacodyl 10 mg rectal suppository [address] DAILYPRN PRN Constipation 30 days #30 ea 02/20/25
bisacodyl 5 mg tablet,delayed release 10 mg (2 x 5 mg) PO DAILYPRN PRN Constipation 30 days #30 tabs 02/20/25
docusate sodium 100 mg capsule 100 mg PO BID 30 days #60 caps 02/20/25
levetiracetam 500 mg tablet 500 mg PO BID seizure prophylaxis 30 days #60 tabs 02/20/25
sertraline 25 mg tablet 25 mg PO DAILY Mental Health/Anxiety 30 days #30 tabs 02/20/25
sennosides 8.6 mg tablet (Angela-stephen) 17.2 mg PO DAILY Constipation 02/22/25
dexamethasone 2 mg tablet 2 mg PO DIRECTED #70 tabs 02/26/25
Review of Systems
-
Unable to obtain full review of systems at this time due to: Acuity
Physical Exam
Vital Signs
Vital Signs
Temp Pulse Resp BP Pulse Ox
35.2 F L 93 15 98/56 85
03/22/25 14:24 03/22/25 14:15 03/22/25 14:15 03/22/25 14:15 03/22/25 14:24
Physical exam:
General: Acutely ill
HEENT: Prior surgical scars in the scalp. ETT in place. Pupils minimally responsive to light and miotic
Respiratory: Clear to Auscultation; Negative Wheezes, Rales or Rhonchi
Cardiac: Regular Rhythm and S1/S2
GI: Soft, Nontender and Nondistended
Neuro: Unresponsive on the vent
Physical Exam
General: Other
Laboratory Results
-
03/22/25 13:52
07/04/25 13:53
Laboratory Results
PT 25.3 Sec (11.4-14.6) H 03/22/25 13:53
INR 2.29 03/22/25 13:53
Total Bilirubin Cancelled 03/22/25 13:53
AST Cancelled 03/22/25 13:53
ALT Cancelled 03/22/25 13:53
Alkaline Phosphatase Cancelled 03/22/25 13:53
Troponin I 0.136 ng/ml H* 03/22/25 13:53
Data Reviewed
-
Diagnostic Radiology: Image Personally Visualized and interpreted
CT Scan: Image Personally Visualized and interpreted
Lab Data: Labs Reviewed by me
Impression/Plan
-
IMPRESSION:
Patient 49 years old female with history of GBM came in with unresponsiveness and [id number] cardiac arrest.
PLAN:
Cardiorespiratory arrest:
PEA episode and ROSC after ACLS
Etiology appears to be bilateral PE
Discussed with pantry attendant, ER physician,neurosurgery and we are in agreement to start her on heparin drip. I discussed with interventional radiologist (Dr Felix Monique) and they do not think that they need to be involved since most of her clot
burden are peripheral so would not benefit from thrombectomy. There is certainly high risk of bleeding but benefits and risk at this point favors treated with anticoagulant and neurosurgery cleared her to start her on heparin drip.
I spoke with cardiology (Dr Rashawn Kitchen) and he feels he does not need to be involved at the moment and seems to be reasonable since this is primarily caused by VTE.
Will try to get an echocardiogram rather for prognosis
Might be a target for TTM but will defer to pantry attendant.
B/L PE:
Started on heparin drip- see above
Monitor closely
Acute respiratory failure:
Continue mechanical ventilation
Pulmonary/pantry attendant on board
Toxic metabolic encephalopathy:
CT of the head no acute findings
After acute event we will need to reassess if there is any ischemic/anoxic brain injury
Neurology consult-discussed with neuro via tiger text
Elevated troponin:
Related to cardiorespiratory arrest, CPR, metabolic derangement, and PE.
Metabolic acidosis:
In the setting of cardiac arrest
We will keep her on bicarb infusion
WHIT:
IV fluids
Seizure disorder:
Loaded with Keppra IV
Will continue to dose Keppra afterwards depending on clinical course
Glioblastoma multiforme:
Will continue with IV steroids dexamethasone 4 mg IV every 8 hours
DVT prophylaxis:
On heparin drip
CODE STATUS:
Full code
Total Critical Care Time__55___ minutes. I was immediately available to the patient and staff. I personally examined, reviewed labs, diagnostic images/reports, interpretations, treatment plans, discussed patient care with other providers and
family or caregivers (if patient is unable to make decisions), entered orders as appropriate and documented the medical record.
--- NOTE | 2025-03-22 14:56 | PHANOTE ---
med rec note- patient has no ecw to compare medication, even though family stated patient using [facility] for treatment.
--- NOTE | 2025-03-22 14:59 | EDRN ---
Dr. Lawrence in to see pt at this time. Verbally ordered cerebel
--- NOTE | 2025-03-22 15:34 | EDRN ---
Addendum entered by Destini Dickerson RN 03/22/25 18:27:
During placement of ceribel it was noted that pt was bleeding from back of her head as when attempting to place leads correctly glove came out very bloody.
Original Note:
Ceribel placed at 15:17. Dr. Monson placed A line at 15:25. A-line zeroed and set up.
[2025-03-22] MEDS: ADRENALIN 250 IV (15:44)
[2025-03-22] MEDS: NSS (PRESERVATIVE FREE) 10 ML IV (16:20)
[2025-03-22] MEDS: PROTONIX IV 40 MG IV (16:20)
[2025-03-22] MEDS: KEPPRA 4500 MG IV (16:20)
[2025-03-22] MEDS: SOLU-CORTEF 100 MG IV (16:22)
[2025-03-22 16:24] LABS: B.E. -16.7 mmol/L; HCO3 19.1 mmol/L (21-28); O2 Saturation % 68.2 % (94-98)
[2025-03-22 16:26] LABS: PCO2 107 mmHg (32-35); PO2 53 mmHg (83-108)
[2025-03-22] MEDS: SODIUM BICARBONATE 1075 MEQ IV (16:36)
--- NOTE | 2025-03-22 16:58 | EDRN ---
Dr. Mckeon in to see pt.
--- NOTE | 2025-03-22 17:00 | EDRN ---
Family in to see pt at 17:00.
[2025-03-22] MEDS: HEPARIN 6600 UNITS IV (17:23)
[2025-03-22] MEDS: HEPARIN 25000 UNITS/250 ML IV (17:26)
--- NOTE | 2025-03-22 17:30 | EDRN ---
Pt had drained 350 mL of urine in urimeter by 15:30 and another 80 mL by 1700. Pt was suctioned a total of 50 mL of bloody secretions from her lung.
[2025-03-22 17:50] LABS: APTT 111.8 Sec (23.4-35.0)
[2025-03-22] MEDS: LR 500 IV (18:00)
--- NOTE | 2025-03-22 18:10 | EDRN ---
Ceribel removed at 17:30 prior to pt going to ICU.
--- NOTE | 2025-03-22 18:12 | EDRN ---
All notes from arrival to 14:55 are on scanned in code sheets.
[2025-03-22] MEDS: PITRESSIN 100 IV (18:15)
[2025-03-22] MEDS: SODIUM BICARBONATE 50 MEQ IV ×3 (18:15→18:22)
[2025-03-22] MEDS: NSS 1000 IV ×2 (18:25→18:38)
[2025-03-22 18:38] LABS: B.E. -3.6 mmol/L; HCO3 28.9 mmol/L (21-28); O2 Saturation % 61.1 % (94-98)
[2025-03-22 18:40] LABS: PO2 39 mmHg (83-108)
[2025-03-22] MEDS: LEVOPHED 250 IV ×2 (18:40→19:09)
[2025-03-22 18:42] LABS: PCO2 107 mmHg (32-35)
[2025-03-22 18:45] LABS: Hematocrit 32.4 % (37.0-47.0); Hemoglobin 10.6 g/dL (12.0-16.0); Mean Corp Hgb Conc. 32.7 g/dL (33.0-37.0); Mean Corpuscular Volume 99.7 fL (81.0-99.0); Platelet Count 147 10^3/uL (130-400); Red Cell Dist. Width 13.5 % (11.5-14.5)
[2025-03-22 18:49] LABS: Urine Character Clear (Clear)
--- NOTE | 2025-03-22 18:49 | PHA.VAN.IN ---
Assessment
- Assessment
Renal Function: SCR Appears Elevated from baseline (Baseline about 0.5)
Maximum Temperature: 95.8
Minimum Temperature: 35.2
Plan
- Plan
Initial / Loading Dose: 2000mg 03/22
Maintenance Regimen: Dose by level
Monitoring: Random level with morning labs
Pharmacokinetics Vancomycin I
- -
Patient Age: 49
Patient Sex: Female
Vancomycin Day #: 1
Indication: Bacteremia
Requesting Provider: Dr. Ramsay
Height / Weight:
Height 5 ft 6 in
Actual Weight 84.1 kg
Pertinent Past Medical History: Glioblastoma
- Vital Signs / Lab Results
Temp Pulse Resp BP Pulse Ox
95.8 F L 108 24 122/102 92
03/22/25 18:09 03/22/25 17:52 03/22/25 17:52 03/22/25 17:52 03/22/25 17:52
Lab Results - Hematology
03/22/25 03/22/25
13:52 18:29
WBC 17.2 H 29.1 H
Band Neutrophils 14 H
Lab Results - Chemistry
03/22/25
13:53
BUN 12
Creatinine 1.1 H
Albumin Cancelled
[2025-03-22] MEDS: NEO-SYNEPHRINE 250 IV (18:50)
[2025-03-22 18:52] LABS: PT 66.4 Sec (11.4-14.6)
[2025-03-22 18:56] LABS: Magnesium 2.4 mg/dl (1.6-2.3); Triglycerides 65 mg/dl (10-149)
[2025-03-22 18:58] LABS: Urine Squamous Cell 16-20 /LPF (Few)
--- NOTE | 2025-03-22 18:58 | PTCARENOTE ---
Rec'd pt at approx 1740 from ED. When pt pulled over from stretcher large amt of blood noted to be behind pt's head, C-collar in place. Ceribel band removed from pt to assess head, large open wound to left side of scalp-appears to be from previous
incision site--actively bleeding. notified and Heparin gtts placed on hold. Bulky dressing applied to left side of head. SBP 40's on right radial a-line on Epi gtts 5mcg/min, Epi increased to 10mcg/min. SBP 40-50's. notified Levophed gtts
ordered and titrated up to 30mcg/min, SBP remains 40-50's. Vasopressin gtts started. Dr. Ramsay at bedside. 3 amps HCO3 given. SBP remains 50's. 2L IVF bolus given. 1850-David gtts started at 200mcg/min. SBP 60-70's. Lily HAMILTON at bedside. Report
given at bedside to nightshift RN.
[2025-03-22 18:59] LABS: Urine Red Blood Cell 0-2 /HPF (0-2); Urine White Cell 0-2 /HPF (0-5)
[2025-03-22] MEDS: SOLU-CORTEF 50 MG IV (19:00)
[2025-03-22 19:01] LABS: Albumin 1.7 g/dl (3.5-5.0); Alkaline Phosphatase 244 U/L (38-126); Blood Urea Nitrogen 20 mg/dl (7-17); Calcium 6.3 mg/dl (8.4-10.2); Carbon Dioxide 31 mmol/L (22-30); Chloride 105 mmol/L (98-107); Estimated Creatinine Clearance 68 ml/min; Glucose 431 mg/dl (70-99); Potassium 3.9 mmol/L (3.5-5.1); Sodium 143 mmol/L (135-145); Total Protein 3.4 g/dl (6.3-8.2); eGFR > 60.00
[2025-03-22 19:03] LABS: INR > 8.0
[2025-03-22 19:04] LABS: Prealbumin (Transthyretin) 9.7 mg/dl (17.6-36.0)
[2025-03-22 19:11] LABS: ALT (SGPT) 1047 U/L (0-35); AST (SGOT) 1135 U/L (14-36)
[2025-03-22 19:20] LABS: Hematocrit 28.2 % (37.0-47.0); Hemoglobin 8.8 g/dL (12.0-16.0); Mean Corp Hgb Conc. 31.2 g/dL (33.0-37.0); Mean Corpuscular Volume 101.1 fL (81.0-99.0); Platelet Count 182 10^3/uL (130-400); Red Cell Dist. Width 13.5 % (11.5-14.5)
[2025-03-22 19:21] LABS: Absolute Neutrophils -Man Diff 22.9 10^3/uL (1.4-6.5)
[2025-03-22 19:22] LABS: Anisocytosis Slight; Normal RBC Morphology No; Platelets Checked Yes; Polychromasia Slight
[2025-03-22 19:23] LABS: Dohle Bodies Slight; Total Cells Counted 100
[2025-03-22 19:36] LABS: B.E. -10.4 mmol/L; HCO3 21.2 mmol/L (21-28); O2 Saturation % 51.6 % (94-98)
[2025-03-22 19:38] LABS: PCO2 90 mmHg (32-35)
[2025-03-22 19:39] LABS: PO2 35 mmHg (83-108)
[2025-03-22] MEDS: NIMBEX 13 MG IV (19:43)
[2025-03-22] MEDS: CALCIUM GLUCONATE 290 MG IV (19:47)
[2025-03-22] MEDS: VANCOCIN 540 MG IV (19:53)
[2025-03-22] MEDS: FLEXBUMIN 100 IV ×2 (20:01→20:56)
--- NOTE | 2025-03-22 20:57 | W.PN.UPDATE ---
Addendum entered and electronically signed by OLE Cervantes 03/23/25 00:03:
Add to previous note, family was updated multiples times throughout the night. Multiple discussions held with patient's Foreign and updates were given.
Original Note:
Update Note
Progress Note Update
03/22/25
1830- Patient profoundly hypotensive, ced reading 50-60s. Received 3x boluses for bicarb IV and received IVF fluid boluses as well. Vasopressors currently infusing: levophed, epi, and vasopressin; increased levophed to 40 and vasopressin to
0.04; added kennedy-synephrine gtt. Dr. Ramsay, hospitalist at bedside, case discussed. In addition called Dr. Cho, licensed embalmer, reviewed case and recommendations received, also recommended to have anesthesiologist evaluate the ETT as she was a
difficult airway and has small endotracheal tube. Called anesthesiology, Dr. Gautam, to evaluate ETT placement as tube is #5 concern with ventilation and oxygenation. Bloody secretions noted with suctioning ETT and difficult to suction, ventilator
adjustments made increased tidal volumes to 500, rate to 28, and increased peep as tolerated to 8, patient continues to be profoundly hypotension SBP 50-60s (now maxed on 4 vasopressors). Reviewed risk benefit of tube exchanged with
anesthesiologist, concern for airway and risk outweighs benefit at this time. Opted to paralyze patient and make ventilator adjustments, reduced rate to 18, peep 8, tidal volume 550. Increased tidal volume and peep to recruit alveoli and volumes,
possible space and VQ mismatch from pulmonary emboli, blood, and aspiration pneumonia. Oxygen saturation correlated with ABG 35%, CO2 107 and repeat was 90. Multiple issues with both ventilation and oxygenation with combination of hypoxemic
hypercapnia respiratory acidosis and perfusion. Differential for ventilation/oxygenation issues: includes prolonged downtime/anoxia, pulmonary emboli, cardiogenic shock, shock liver, aspiration pneumonia, vs blood/bleeding with intubation and CPR.
2000- Hgb noted 8.8, INR >8, will transfuse PRBC x2 and FFP x3. SBP 60s via ced, maxed on 4x vasopressors (epi, levophed, kennedy, and vasopressin). Given nimbex paralytic again to help with ventilator synchrony and support.
0 Pupils 7 bilaterally, non reactive, SBP increased to 80-90, concern for brain herniation. Continues to bleed and ooze from left cranial incision side. Blood now noted from nares. Concern for probable DIC, will send lab work. Dr. Juanita Simons,
neurosurgeon, updated concern for herniation and recommendation of STAT Ct scan of the head w/o IV contrast. Dr. Cho, licensed embalmer updated and agreed with plan of care.
2229- Ctscan of the head obtained and radiologist Dr. Lalo Rodríguez MD called with results: Interval development of diffuse brain edema with loss of hodgson white matter differentiation and diffuse sulcal effacement. Increasing downward herniation with
effacement of quadrigeminal and suprasellar cisterns. Peripherally hyperdense lesion again seen left osullivan radiata, measuring 5.8x3.3x6.4 cm extending to the right of midline. Surrounding vasogenic edema.
2300- Discussed with patient's , Foreign Walters, about neuro exam findings, pupillary changes, and Ctscan head results. Reviewed pathophysiology and brain herniation is progressing from vasogenic edema. Unfortunately this is not recoverable,
brain or cardiac in inevitable. Answered all questions and reviewed plan of care including moving towards comfort measures. Family discussed privately about continuing care vs comfort measures, and they would like to terminally
extubate patient.
0000- Patient will be terminally extubated to comfort measures, prn fentanyl ordered for comfort. Will extubate and turn off all vasopressors.
[2025-03-22] MEDS: LEVOPHED 258 MG IV (21:01)
[2025-03-22 21:21] LABS: B.E. -11.0 mmol/L; HCO3 19.8 mmol/L (21-28); O2 Saturation % 53.2 % (94-98)
[2025-03-22 21:22] LABS: PCO2 84 mmHg (32-35); PO2 30 mmHg (83-108)
[2025-03-22] MEDS: REFRESH CELLUVISC GEL 1 DROPS OPHTH (21:45)
--- NOTE | 2025-03-22 23:15 | PTCARENOTE ---
Assumed care of pt. approx 1899.
Pt. max dose polypressed quickly upon arrival, still not meeting MAP goals, verbal orders from ICU GARRETT to increase norepi gtt to 40mcg.
-Norepi/Phenyl x2 concentrated. See titration flowsheets for details.
0
Pt. remains unstable, ICU GARRETT bedside --> orders to hold off on TTM initiation.
0
SP02 in 30s accurate pleth, confirmed with ABG results. ICU GARRETT notified bedside decision to call anesthesia bedside to evaluate Prehospital ETT of 5.5, attempts to bougie larger ET tube unable due to anatomy/ pt to unstable.
Vent settings switched to APRV.
Paralytics given bedside with anesthesia.
2034
ICU GARRETT bedside, orders for 2 PRBC, 3 FFP to be transfused.
Remains polypressed/ MAX DOSE --> Maps remaining in 50s. SP02 50s provider notified.
2144
upon reassessment pupils now unequal R = 7mm L = 3mm --> ICU GARRETT notified of findings.
--> neurosurgery senior information developer notified of findings orders for CT scan when stable.
[address] scan uneventfully, SP02 improving to 70s, MAPs in high 50s, Remains Quad pressed max dose.
0
CT scan revealed diffuse herniation per radiology --> ICU GARRETT to update family on GOC discussion,
2300
Family has decided to withdrawal care and focus on comfort measures at this time.
[2025-03-23] MEDS: SUBLIMAZE 50 MCG IV (00:10)
--- NOTE | 2025-03-23 00:15 | PTCARENOTE ---
Family updated and brought bedside.
Terminal extubation completed.
--- NOTE | 2025-03-23 00:43 | PTCARENOTE ---
Pt. now asystole on monitor, ICU GARRETT bedside to pronounce.
--- NOTE | 2025-03-23 01:09 | W.PN.DEATH ---
Pronouncement of
-
Called to see patient to pronounce.
No spontaneous heart tones or respirations noted.
Patient not responsive to verbal stimuli.
Patient is pronounced .
Time of : 00:42
Date of : 03/23/25
Cause of : acute hypoxemic respiratory failure, pulmonary embolism
Family Notified: Yes (family at bedside at time of )
--- NOTE | 2025-03-23 07:56 | W.DCSUMMARY ---
Discharge Summary
Discharge Data
Date of Admission: 03/22/25
Date of Discharge: 03/23/25
-
Pending Results: No
Hospital Course
Patient 49 years old female with past medical history of glioblastoma multiforme status chemotherapy and radiation came into the hospital after cardiorespiratory arrest. Patient was critically ill. Patient received ACLS and had ROSC prior to
admission. Patient had a complex hospital course. She had been intubated. She was found to have bilateral PE and started on heparin drip. After discussion with pneumatic systems operator pulmonary and IR she was not a candidate for thrombectomy or for lytic
due to relatively recent surgeries. We discussed with neurosurgery who cleared her for anticoagulation. Patient course worsen and became hypotensive, actively bleeding externally appearing to have DIC. She was given fluids, maxed on 4 pressors,
stress doses of steroids, FFP and blood transfusions, bicarb infusions, broad-spectrum antibiotics, among other different strategies. Despite best clinical efforts patient continued to deteriorate clinically so family was reached and she was made
comfort care and she was terminally extubated.
Discharge Plan
-
Patient Disposition:
Date/Time
Date/Time: 03/23/25 00:42
Discharge Date and Time
Discharge Date/Time: 03/23/25 00:42
Print Language: DUTCH
--- NOTE | 2025-03-23 20:43 | EEGC.RPT ---
Continuous EEG Report
Recording
Start Date of Data Reviewed: 03/22/25
Start Time of Data Reviewed: 15:16
End Date of Data Reviewed: 03/22/25
End Time of Data Reviewed: 17:26
Report
Clinical Background:�cardiac arrest
Introduction: An emergent EEG was done using [employer] system
Background: no electrical activity of clearly cerebral origin.
Impression: profound generalized cerebral dysfunction or brain
--- NOTE | 2025-03-25 09:10 | CM ---
Patient 03/23/25 @ 0102
== END 2025-03-23 00:42 | disposition expired | DRG 208 ==
LOC: ICU 15:39
PROVIDERS: Hospitalist; Nurse Practitioner Family; ADMITTING PHYSICIAN Hospitalist; CONSULT PHYSICIAN Internal Medicine Critical Care Medicine; EMERGENCY PHYSICIAN Emergency Medicine
PROC: 5A12012 Performance of Cardiac Output, Single, Manual (ICD-10-PCS; 2025-03-22)
PROC: 30233N1 Transfusion of Nonautologous Red Blood Cells into Peripheral Vein, Percutaneous Approach (ICD-10-PCS; 2025-03-22)
PROC: 5A1935Z Respiratory Ventilation, Less than 24 Consecutive Hours (ICD-10-PCS; 2025-03-22)
PROC: 30233K1 Transfusion of Nonautologous Frozen Plasma into Peripheral Vein, Percutaneous Approach (ICD-10-PCS; 2025-03-22)
DX: I26.99 Other pulmonary embolism without acute cor pulmonale (principal); D65 Disseminated intravascular coagulation [defibrination syndrome]; J96.01 Acute respiratory failure with hypoxia; G92.8 Other toxic encephalopathy; C71.9 Malignant neoplasm of brain, unspecified; E87.20 Acidosis, unspecified; N17.9 Acute kidney failure, unspecified; I46.9 Cardiac arrest, cause unspecified; G40.909 Epilepsy, unspecified, not intractable, without status epilepticus; I95.9 Hypotension, unspecified; Z51.5 Encounter for palliative care
CPT/HCPCS: 36556; 51702; 70450; 71045; 71275; 80048; 80053; 81003; 81015; 82805; 83735; 84100; 84134; 84478; 84484; 85025; 85027; 85610; 85730; 86850; 86900; 86901; 86920; 87086; 93005; 94002; 94003; 96365; 96366; 96375; 99291; 99292; J7030; P9016; P9047; P9059; Q9967